=== PATIENT | female | born 1965 | race Caucasian/White ===

== ENCOUNTER 2018-09-12 10:28 | Inpatient (IN) | payer OTHER ==
[2018-09-12 10:59] VITALS: BMI 24.7
--- NOTE | 2018-09-12 13:08 | HP ---
COWS - Scale Resting Pulse: 1= [place] 81-100 Sweatin= Chills/Flushing Restless Observation: 3= Extraneous Movement Pupil Size: 1= Pupils >than Normal Bone or Joint Aches: 2= Severe Diffuse Aches Runny Nose/ Eye Tearin= Runny Nose/Eyes GI Upset > 30mins: 2= Nausea/Diarrhea Tremor Observation: 2= Slight Tremor Visible Yawning Observation: 2= >3x During Session Anxiety or Irritability: 2=Irritable/Anxious Goose Flesh Skin: 0=Smooth Skin COWS Score: 18 CIWA Score Nausea/Vomitin Muscle Tremors: 2 Anxiety: 2 Agitation: 2 Paroxysmal Sweats: 1-Minimal Palms Moist Orientation: 0-Oriented Tacttile Disturbances: 1-Very Mild Itch/Numbness Auditory Disturbances: 0-None Visual Disturbances: 2-Mild Sensitivity Headache: 2-Mild CIWA-Ar Total Score: 14 - Admission Criteria OASAS Guidelines: Admission for Medically Managed Detox: Requires at least one of the followin. CIWA greater than 12 2. Seizures within the past 24 hours 3. Delirium tremens within the past 24 hours 4. Hallucinations within the past 24 hours 5. Acute intervention needed for co occurring medical disorder 6. Acute intervention needed for co occurring psychiatric disorder 7. Severe withdrawal that cannot be handled at a lower level of care (continued vomiting, continued diarrhea, abnormal vital signs) requiring intravenous medication and/or fluids 8. Patient presents the following: CIWA greater than 12 Admission Criteria Met: Admission criteria met Admission ROS S - [facility] Chief Complaint: i need help to stop using heroin and alcohol Allergies/Adverse Reactions: Allergies Allergy/AdvReac Type Severity Reaction Status Date / Time codeine Allergy Intermediate Hives Verified 09/12/18 12:31 History of Present Illness: this 52 years old female with heroin and alcohol dependence,seeking detox, withdrawal symptom,last detox [facility] 03/06/18 to 03/10/18 syncope nicotine dependence bipolar disorder and depression longest period of sobriety 5 years plan for rehab after detox Exam Limitations: No Limitations - Ebola screening Have you traveled outside of the country in the last 21 days: No (N) Have you had contact with anyone from an Ebola affected area: No Have you been sick,other than usual withdrawal symptoms: No Do you have a fever: No - Review of Systems Constitutional: Chills, Loss of Appetite, Malaise, Night Sweats, Changes in sleep, Weakness EENT: reports: Tearing, Nose Congestion Respiratory: reports: No Symptoms reported Cardiac: reports: No Symptoms Reported GI: reports: Diarrhea, Nausea, Poor Appetite : reports: No Symptoms Reported Musculoskeletal: reports: Back Pain, Joint Pain, Muscle Pain, Joint Stiffness Integumentary: reports: Dryness Neuro: reports: Headache, Tremors Endocrine: reports: No Symptoms Reported Hematology: reports: No Symptoms Reported Psychiatric: reports: No Sypmtoms Reported, Judgement Intact, Mood/Affect Appropiate, Orientated x3, other (bipolar disorder) Other Systems: Reviewed and Negative Patient History - Patient Medical History Hx Anemia: No Hx Asthma: No Hx Chronic Obstructive Pulmonary Disease (COPD): No Hx Cancer: No Hx Cardiac Disorders: No Hx Congestive Heart Failure: No Hx Hypertension: No Hx Hypercholesterolemia: No Hx Pacemaker: No HX Cerebrovascular Accident: No Hx Seizures: No Hx Dementia: No Hx Diabetes: No Hx Gastrointestinal Disorders: No Hx Liver Disease: No Hx Genitourinary Disorders: No Hx Sexually Transmitted Disorders: No Hx Renal Disease (ESRD): No Hx Thyroid Disease: No Hx Human Immunodeficiency Virus (HIV): No Hx Hepatitis C: No Hx Depression: Yes Hx Suicide Attempt: No Hx Bipolar Disorder: Yes ([facility]) Hx Schizophrenia: No Other Medical History: no suicidal,no homicidal - Patient Surgical History Past Surgical History: Yes Hx Neurologic Surgery: No Hx Cataract Extraction: No Hx Cardiac Surgery: No Hx Lung Surgery: No Hx Breast Surgery: Yes (bilateral breast augmentation in 2005) Hx Breast Biopsy: No Hx Abdominal Surgery: No Hx Appendectomy: No Hx Cholecystectomy: No Hx Genitourinary Surgery: No Hx Section: No Hx Orthopedic Surgery: Yes (lower back in 1999 - ) Anesthesia Reaction: No - PPD History Previous Implant?: Yes Documented Results: Negative w/proof Implanted On Prior [facility] Admission?: Yes Date: 03/08/18 Results: 0 mm PPD to be Administered?: No - Reproductive History Patient is a Female of Child Bearing Age (11 -55 yrs old): Yes Last Menstrual Period: 01/25/18 Patient : No - Smoking Cessation Smoking history: Current every day smoker Have you smoked in the past 12 months: Yes Aproximately how many cigarettes per day: 10 Cigars Per Day: 0 Hx Chewing Tobacco Use: No Initiated information on smoking cessation: Yes 'Breaking Loose' booklet given: 09/12/18 - Substance & Tx. History Hx Alcohol Use: Yes Hx Substance Use: Yes Substance Use Type: Alcohol, Heroin Hx Substance Use Treatment: Yes ([facility] 08/07/18 to to 03/10/18) - Substances Abused Alcohol Route: Oral Frequency: Daily Amount used: 1 QUART OF VODKA Age of first use: 13 Date of Last Use: 09/12/18 Heroin Route: Inhalation Frequency: Daily Amount used: 7 bags Age of first use: 13 Date of Last Use: 09/09/18 Family Disease History - Family Disease History Family Disease History: Diabetes: Father (living, age 92, ), Heart Disease: Father, CA: Mother (, brain ca), Other: Father, Mother, Brother (one - living - Crohns disease), Sister (one - living - hx heroin - on suboxone) Admission Physical Exam [facility] - Vital Signs Vital Signs: Vital Signs - 24 hr 09/12/18 10:41 Temperature 98.6 F Pulse Rate 96 H Respiratory 18 Rate Blood Pressure 98/79 - Physical General Appearance: Yes: Moderate Distress, Tremorous, Irritable, Sweating, Anxious HEENTM: Yes: Normal ENT Inspection, ORLY, Pharynx Normal Respiratory: Yes: Lungs Clear, Normal Breath Sounds, No Respiratory Distress Neck: Yes: Within Normal Limits, No masses,lesions,Nodules, Supple, Trachea in good position Breast: Yes: Breast Exam Deferred (s/p bilateral breast augmentation) Cardiology: Yes: Within Normal Limits, Regular Rhythm, Regular Rate, S1, S2 Abdominal: Yes: Normal Bowel Sounds, Non Tender, Flat, Soft Genitourinary: Yes: Within Normal Limits Musculoskeletal: Yes: Back pain, Joint Stiffness, Muscle Pain Extremities: Yes: Within Normal Limits, Normal Range of Motion, Tremors Neurological: Yes: information security engineer II-XII NML intact, Fully Oriented, Alert, Motor Strength 5/5 Integumentary: Yes: Dry Lymphatic: Yes: Within Normal Limits - Diagnostic (1) Opioid dependence with withdrawal Current Visit: Yes Status: Acute (2) Opioid dependence Current Visit: No Status: Active (3) Alcohol dependence with uncomplicated withdrawal Current Visit: No Status: Acute (4) Nicotine dependence Current Visit: Yes Status: Acute (5) Weight loss Current Visit: Yes Status: Acute (6) Bipolar disorder Current Visit: Yes Status: Acute Cleared for Admission S - Detox or Rehab [facility] Level of Care: Medically Managed Detox Regimen/Protocol: Methadone/Librium S Breath Alcohol Content Breath Alcohol Content: 0.046 Urine Pregancy Test - Result Urine Test Results: Negative- NO Line Present Urine Drug Screen - Results Drug Screen Negative: No Urine Drug Screen Results: BZO-Benzodiazepines, BUP-Suboxone
[2018-09-12] MEDS ORDERED: CYCLOBENZAPRINE HCL 10 MG TABLET (FP) PO PRN (13:32)
[2018-09-12] MEDS ORDERED: METHADONE HCL 10 MG TABLET (FOR DETOX USE ONLY) PO ONE ×2 (15:00→23:00)
[2018-09-12] MEDS: chlordiazePOXIDE HCL 25 MG CAPSULE PO PRN ×2 (15:40→18:51)
[2018-09-12] MEDS: chlordiazePOXIDE HCL 25 MG CAPSULE PO SCH ×2 (17:09→22:09)
[2018-09-13] MEDS: chlordiazePOXIDE HCL 25 MG CAPSULE PO SCH ×4 (05:41→22:02)
[2018-09-13] MEDS ORDERED: METHADONE HCL 10 MG TABLET (FOR DETOX USE ONLY) PO SCH (10:00)
[2018-09-13] MEDS: NICOTINE 21 MG/24 HOURS TOPICAL PATCH TD SCH (10:02)
[2018-09-13] MEDS ORDERED: guaiFENesin/D-METHORPHAN HB 10 ML UNIT-DOSE CUPS PO PRN (10:06)
[2018-09-13] MEDS ORDERED: ACETAMINOPHEN 325 MG TABLET (FP) PO PRN (10:06)
[2018-09-13] MEDS ORDERED: MAG HYDROX/AL HYDROX/SIMETH 30 ML UNIT-DOSE CUP PO PRN (10:06)
[2018-09-13] MEDS ORDERED: P-EPHED 60MG/TRIPROLIDI 2.5MG TABLET PO PRN (10:06)
[2018-09-13] MEDS ORDERED: LOPERAMIDE HCL 2 MG CAPSULE PO PRN (10:06)
[2018-09-13] MEDS ORDERED: MENTHOL/PHENOL 1 EACH UD MM PRN (10:06)
[2018-09-13] MEDS ORDERED: MAGNESIUM CITRATE 300 ML BOTTLE PO PRN (10:06)
[2018-09-13] MEDS ORDERED: IBUPROFEN 400 MG TABLET (FP) PO PRN (10:06)
--- NOTE | 2018-09-13 10:12 | PN ---
[facility] CIWA - CIWA Score Nausea/Vomitin-Mild Nausea/No Vomiting Muscle Tremors: 3 Anxiety: 3 Agitation: 3 Paroxysmal Sweats: 1-Minimal Palms Moist Orientation: 1-Uncertain about Date Tacttile Disturbances: 0-None Auditory Disturbances: 0-None Visual Disturbances: 0-None Headache: 2-Mild CIWA-Ar Total Score: 14 [facility]HS COWS - Scale Resting Pulse: 0= MT 80 or Below Sweatin= Chills/Flushing Restless Observation: 0= Sits Still Pupil Size: 0= Normal to Room Light Bone or Joint Aches: 2= Severe Diffuse Aches Runny Nose/ Eye Tearin= Nasal Congestion GI Upset > 30mins: 2= Nausea/Diarrhea Tremor Observation of Outstretched Hands: 2= Slight Tremor Visible Yawning Observation: 1= 1-2x During Session Anxiety or Irritability: 1=Feels Anxious/Irritable Goose Flesh Skin: 0=Smooth Skin COWS Score: 10 [facility] Progress Note (SOAP) Subjective: patient has bipolar II history of psychiatric hospitalization for manic depression treated with psychotropic medication patient meet the criteria for psychiatric referral tremor body aches muscle cramping sweating anxiousness Objective: 09/13/18 10:40 Vital Signs Temperature 97.1 F L 09/13/18 10:05 Pulse Rate 77 09/13/18 10:05 Respiratory Rate 17 09/13/18 10:05 Blood Pressure 97/75 09/13/18 10:05 O2 Sat by Pulse Oximetry (%) lab pending Assessment: 09/13/18 10:44 withdrawal sx Plan: continue detox
[2018-09-13] MEDS: NICOTINE POLACRILEX 4 MG GUM BUC PRN (11:22)
[2018-09-13] MEDS: chlordiazePOXIDE HCL 25 MG CAPSULE PO PRN ×2 (14:01→20:27)
[2018-09-13 14:50] LABS: HEMATOCRIT 37.3 % (32.4-45.2); HEMOGLOBIN 12.8 GM/dL (10.7-15.3); MCH 31.3 pg (25.7-33.7); MCHC 34.2 g/dl (32.0-36.0); MEAN CELL VOLUME 91.5 fl (80-96); MEAN PLT VOLUME 8.5 fl (7.5-11.1); PLATELET COUNT 287 K/MM3 (134-434); RBC 4.08 M/mm3 (3.60-5.2); RDW 15.2 % (11.6-15.6); WHITE BLOOD COUNT 5.5 K/mm3 (4.0-10.0)
[2018-09-13] MEDS ORDERED: BACITRACIN 0.9 GM PACKET TP ONE (15:15)
[2018-09-13 15:27] LABS: ALK PHOS 43 U/L (45-117); ANION GAP 5 MMOL/L (8-16); BILIRUBIN,TOTAL 0.3 mg/dL (0.2-1); BLOOD UREA NITROGEN 17 mg/dL (7-18); CALCIUM 8.5 mg/dL (8.5-10.1); CHLORIDE 105 mmol/L (98-107); CO2 30 mmol/L (21-32); CREATININE 0.7 mg/dL (0.55-1.3); GLUCOSE,RANDOM 99 mg/dL (74-106); POTASSIUM 4.3 mmol/L (3.5-5.1); SGOT/AST 14 U/L (15-37); SGPT/ALT 18 U/L (13-61); SODIUM 140 mmol/L (136-145); TOT PROT 5.6 g/dl (6.4-8.2)
--- NOTE | 2018-09-13 15:40 | CONSULT ---
[facility] Psychiatric Consult - Data Date of interview: 09/13/18 Admission source: [facility] Identifying data: Readmission to [facility] for this 52 y/o female currently undergoing detoxification (alcohol). 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 Substance Abuse History: Confirmed by the patient in this interview. Details in current [facility] report as follows : Smoking history: Current every day smoker. Have you smoked in the past 12 months: Yes. Aproximately how many cigarettes per day: 10. Cigars Per Day: 0. Hx Chewing Tobacco Use: No. Initiated information on smoking cessation: Yes. 'Breaking Loose' booklet given: . - Substance & Tx. History. Hx Alcohol Use: Yes. Hx Substance Use: Yes. Substance Use Type: Alcohol, Heroin. Hx Substance Use Treatment: Yes ([facility] to to 03/10/18). - Substances Abused. Alcohol. Route: Oral. Frequency: Daily. Amount used: 1 QUART OF VODKA. Age of first use: 13. Date of Last Use: 09/12/18. Heroin. Route: Inhalation. Frequency: Daily. Amount used: 7 bags. Age of first use: 13. Date of Last Use: 09/09/18 Medical History: Remarkable for chronic lumbar pain, fibromyalgia, psoriatic arthritis and a history of surgeries (bilateral breast augmentation, fusion of lumbar spine). Psychiatric History: Patient endorses a history of one psychiatric hopsitalization, in the , at [facility] in [facility]. Initially diagnosed with MDD and OCD (age 16). Later revised to Bipolar Disorder (approximately nine months ago, by her new psychiatrist, Dr Rodriguez). Ms Barnett sees Dr Lucrecia Rodriguez at her private office in [facility], for medication management. Patient is maintained on a regimen of latuda 60 mg/ day + prozac 60 mg/day + trazodone 100 mg/hs (confirmed by pharmacy claims of 06/[address] [facility] Adequate adherence to medications, as per self-report. No history of suicide attempts. Physical/Sexual Abuse/Trauma History: No reported history of abuse. Traumatized by her divorce (took place 10 years ago). Additional Comment: Urine Drug Screen Results: BZO-Benzodiazepines, BUP- Suboxone. Noted. Mental Status Exam - Mental Status Exam Alert and Oriented to: Time, Place, Person Cognitive Function: Good Patient Appearance: Well Groomed (short stature) Mood: Apprehensive, Hopeful Affect: Appropriate, Normal Range Patient Behavior: Talkative, Appropriate, Cooperative Speech Pattern: Clear, Appropriate Voice Loudness: Normal Thought Process: Intact, Goal Oriented Thought Disorder: Not Present Hallucinations: Denies Suicidal Ideation: Denies Homicidal Ideation: Denies Insight/Judgement: Fair Sleep: Poorly, Difficulty falling asleep Appetite: Good Muscle strength/Tone: Normal Gait/Station: Normal Psychiatric Findings - Problem List ([place] 1, 2,3) (1) Alcohol dependence with uncomplicated withdrawal Current Visit: Yes Status: Acute (2) Opioid dependence with withdrawal Current Visit: Yes Status: Acute (3) Benzodiazepine dependence Current Visit: Yes Status: Chronic (4) Nicotine dependence Current Visit: Yes Status: Chronic Qualifiers: Nicotine product type: cigarettes Substance use status: in withdrawal Qualified Code(s): F17.213 - Nicotine dependence, cigarettes, with withdrawal (5) Bipolar disorder Current Visit: Yes Status: Chronic Comment: On medications. (6) Substance induced mood disorder Current Visit: Yes Status: Chronic (7) Insomnia Current Visit: Yes Status: Chronic - Initial Treatment Plan Initial Treatment Plan: Psychiatric interview is conducted with medical students in attendance. Psychoeducation : patient is reminded of the deleterious effects of substance abuse (ETOH, opioid, nicotine, benzodiazepines ) on several domains of functioning (medical, legal, vocational, psychological, social) and recent advances in relapse prevention are discussed with the patient. Benefits of adherence to OPD care discussed. Detoxification in progress. AA/NA meetings. Groups. Support. Patient is willing to resume latuda 40 mg po daily (dose is reduced as a caution for oversedation) + prozac 60 mg po daily + trazodone 100 mg po hs. Ordered. Side effects/benefits of each formulation are discussed with patient. Ms Barnett consents, verbally, to the inclusion of these drugs to the current medication regimen. Observation.
--- NOTE | 2018-09-13 17:32 | EKG ---
Test Reason : Blood Pressure : / mmHG Vent. Rate : 062 BPM Atrial Rate : 062 BPM P-R Int : 186 ms QRS Dur : 078 ms QT Int : 410 ms P-R-T Axes : 063 -32 001 degrees QTc Int : 416 ms NORMAL SINUS RHYTHM LEFT AXIS DEVIATION LOW VOLTAGE QRS ABNORMAL ECG WHEN COMPARED WITH ECG OF 06-MAR-2018 15:28, T WAVE VARIATION Confirmed by PATIENCE HAILE MD ([id number]) on 09/13/2018 5:31:55 PM Referred By: Confirmed By:PATIENCE HAILE MD
[2018-09-13] MEDS ORDERED: MELATONIN 5 MG TABLETS PO PRN (22:00)
[2018-09-13] MEDS: THIAMINE HCL 100 MG TABLET (FP) PO SCH (22:02)
[2018-09-13] MEDS: traZODone HCL 100 MG TABLET (FP) PO SCH (22:02)
[2018-09-14] MEDS: chlordiazePOXIDE HCL 25 MG CAPSULE PO SCH ×2 (05:31→10:19)
--- NOTE | 2018-09-14 09:04 | PN ---
[facility] CIWA - CIWA Score Nausea/Vomitin-Mild Nausea/No Vomiting Muscle Tremors: 3 Anxiety: 2 Agitation: 1-Slight > Activity Paroxysmal Sweats: 1-Minimal Palms Moist Orientation: 1-Uncertain about Date Tacttile Disturbances: 0-None Auditory Disturbances: 0-None Visual Disturbances: 0-None Headache: 2-Mild CIWA-Ar Total Score: 11 BHS COWS - Scale Resting Pulse: 1= [place] 81-100 Sweatin= Chills/Flushing Restless Observation: 0= Sits Still Pupil Size: 0= Normal to Room Light Bone or Joint Aches: 1= Mild Discomfort Runny Nose/ Eye Tearin= Nasal Congestion GI Upset > 30mins: 1= Stomach Cramp Tremor Observation of Outstretched Hands: 1= Tremor [place], Not Seen Yawning Observation: 1= 1-2x During Session Anxiety or Irritability: 1=Feels Anxious/Irritable Goose Flesh Skin: 0=Smooth Skin COWS Score: 8 [facility] Progress Note (SOAP) Subjective: body aches tremor muscle cramping sweating Objective: 09/14/18 09:03 Vital Signs Temperature 96.5 F L 09/14/18 06:17 Pulse Rate 83 09/14/18 06:17 Respiratory Rate 18 09/14/18 06:17 Blood Pressure 100/76 09/14/18 06:17 O2 Sat by Pulse Oximetry (%) Laboratory Last Values WBC 5.5 K/mm3 (4.0-10.0) 09/13/18 11:00 RBC 4.08 M/mm3 (3.60-5.2) 09/13/18 11:00 Hgb 12.8 GM/dL (10.7-15.3) 09/13/18 11:00 Hct 37.3 % (32.4-45.2) 09/13/18 11:00 MCV 91.5 fl (80-96) 09/13/18 11:00 MCH 31.3 pg (25.7-33.7) 09/13/18 11:00 MCHC 34.2 g/dl (32.0-36.0) 09/13/18 11:00 RDW 15.2 % (11.6-15.6) 09/13/18 11:00 Plt Count 287 K/MM3 (134-434) 09/13/18 11:00 MPV 8.5 fl (7.5-11.1) 09/13/18 11:00 Sodium 140 mmol/L (136-145) 09/13/18 11:00 Potassium 4.3 mmol/L (3.5-5.1) 09/13/18 11:00 Chloride 105 mmol/L (98-107) 09/13/18 11:00 Carbon Dioxide 30 mmol/L (21-32) 09/13/18 11:00 Anion Gap 5 MMOL/L (8-16) L 09/13/18 11:00 BUN 17 mg/dL (7-18) 09/13/18 11:00 Creatinine 0.7 mg/dL (0.55-1.3) 09/13/18 11:00 Creat Clearance w eGFR > 60 (>60) 09/13/18 11:00 Random Glucose 99 mg/dL (74-106) 09/13/18 11:00 Calcium 8.5 mg/dL (8.5-10.1) 09/13/18 11:00 Total Bilirubin 0.3 mg/dL (0.2-1) 09/13/18 11:00 AST 14 U/L (15-37) L 09/13/18 11:00 ALT 18 U/L (13-61) 09/13/18 11:00 Alkaline Phosphatase 43 U/L (45-117) L 09/13/18 11:00 Total Protein 5.6 g/dl (6.4-8.2) L 09/13/18 11:00 Albumin 3.0 g/dl (3.4-5.0) L 09/13/18 11:00 lab noted Assessment: 09/14/18 09:03 alcohol and opiate withdrawal sx Plan: continue detox regimen that the patient is feeling better today in comparison to admission
[2018-09-14] MEDS ORDERED: LURASIDONE HCL 40 MG, LURASIDONE HCL 20 MG PO SCH (10:00)
[2018-09-14] MEDS ORDERED: METHADONE HCL 5 MG TABLET (FOR DETOX USE ONLY) PO SCH (10:00)
[2018-09-14] MEDS ORDERED: LURASIDONE HCL 20 MG TABLET PO SCH (10:00)
[2018-09-14] MEDS: PRENATAL VITAMINS W/ FOLIC ACID TABLET (FP) PO SCH (10:15)
[2018-09-14] MEDS: FLUoxetine HCL 20 MG CAPSULE (FP) PO SCH (10:15)
[2018-09-14] MEDS: LURASIDONE HCL 40 MG TABLET PO SCH (10:16)
[2018-09-14] MEDS: NICOTINE 21 MG/24 HOURS TOPICAL PATCH TD SCH (10:17)
[2018-09-14] MEDS: NICOTINE POLACRILEX 4 MG GUM BUC PRN (10:20)
[2018-09-14] MEDS: chlordiazePOXIDE HCL 25 MG CAPSULE PO PRN (14:08)
[2018-09-14] MEDS: chlordiazePOXIDE 5 MG CAPSULE PO SCH ×2 (17:07→22:00)
[2018-09-14] MEDS: MAGNESIUM HYDROX 2400MG/30ML ORAL SUSPENSION 30 ML CUP PO PRN (17:15)
[2018-09-14] MEDS: traZODone HCL 100 MG TABLET (FP) PO SCH (22:00)
[2018-09-14] MEDS: THIAMINE HCL 100 MG TABLET (FP) PO SCH (22:00)
[2018-09-15] MEDS: chlordiazePOXIDE 5 MG CAPSULE PO SCH ×2 (05:56→10:06)
--- NOTE | 2018-09-15 09:37 | PN ---
S Progress Note (SOAP) Subjective: feeling better today patient requests to begin chemical rehab 09/16/18 that less body ache mild tremor last ativan qid 2 mg 30 days supply filled on 08/24/18 opiate detox regimen modified to suit the needs of the patient Objective: 09/15/18 09:37 Vital Signs Temperature 96.8 F L 09/15/18 09:11 Pulse Rate 75 09/15/18 09:11 Respiratory Rate 18 09/15/18 09:11 Blood Pressure 89/63 L 09/15/18 09:11 O2 Sat by Pulse Oximetry (%) Laboratory Last Values WBC 5.5 K/mm3 (4.0-10.0) 09/13/18 11:00 RBC 4.08 M/mm3 (3.60-5.2) 09/13/18 11:00 Hgb 12.8 GM/dL (10.7-15.3) 09/13/18 11:00 Hct 37.3 % (32.4-45.2) 09/13/18 11:00 MCV 91.5 fl (80-96) 09/13/18 11:00 MCH 31.3 pg (25.7-33.7) 09/13/18 11:00 MCHC 34.2 g/dl (32.0-36.0) 09/13/18 11:00 RDW 15.2 % (11.6-15.6) 09/13/18 11:00 Plt Count 287 K/MM3 (134-434) 09/13/18 11:00 MPV 8.5 fl (7.5-11.1) 09/13/18 11:00 Sodium 140 mmol/L (136-145) 09/13/18 11:00 Potassium 4.3 mmol/L (3.5-5.1) 09/13/18 11:00 Chloride 105 mmol/L (98-107) 09/13/18 11:00 Carbon Dioxide 30 mmol/L (21-32) 09/13/18 11:00 Anion Gap 5 MMOL/L (8-16) L 09/13/18 11:00 BUN 17 mg/dL (7-18) 09/13/18 11:00 Creatinine 0.7 mg/dL (0.55-1.3) 09/13/18 11:00 Creat Clearance w eGFR > 60 (>60) 09/13/18 11:00 Random Glucose 99 mg/dL (74-106) 09/13/18 11:00 Calcium 8.5 mg/dL (8.5-10.1) 09/13/18 11:00 Total Bilirubin 0.3 mg/dL (0.2-1) 09/13/18 11:00 AST 14 U/L (15-37) L 09/13/18 11:00 ALT 18 U/L (13-61) 09/13/18 11:00 Alkaline Phosphatase 43 U/L (45-117) L 09/13/18 11:00 Total Protein 5.6 g/dl (6.4-8.2) L 09/13/18 11:00 Albumin 3.0 g/dl (3.4-5.0) L 09/13/18 11:00 RPR Titer Nonreactive (NONREACTIVE) 09/13/18 11:00 lab noted Assessment: 09/15/18 09:38 mild withdrawal sx Plan: continue detox [facility]
[2018-09-15] MEDS ORDERED: METHADONE HCL 10 MG TABLET (FOR DETOX USE ONLY) PO SCH (10:00)
[2018-09-15] MEDS: PRENATAL VITAMINS W/ FOLIC ACID TABLET (FP) PO SCH (10:04)
[2018-09-15] MEDS: FLUoxetine HCL 20 MG CAPSULE (FP) PO SCH (10:04)
[2018-09-15] MEDS: NICOTINE 21 MG/24 HOURS TOPICAL PATCH TD SCH (10:04)
[2018-09-15] MEDS: LURASIDONE HCL 40 MG TABLET PO SCH (10:06)
[2018-09-15] MEDS: MAGNESIUM HYDROX 2400MG/30ML ORAL SUSPENSION 30 ML CUP PO PRN (10:16)
[2018-09-15] MEDS ORDERED: MINERAL OIL/PETROLAT/WATER TOPICAL CREAM 454 GM JAR TP SCH (13:45)
[2018-09-15] MEDS: NICOTINE POLACRILEX 4 MG GUM BUC PRN (14:12)
[2018-09-15] MEDS: chlordiazePOXIDE HCL 10 MG CAPSULE PO SCH ×2 (17:10→22:24)
[2018-09-15] MEDS: THIAMINE HCL 100 MG TABLET (FP) PO SCH (22:24)
[2018-09-15] MEDS: traZODone HCL 100 MG TABLET (FP) PO SCH (22:24)
[2018-09-16] MEDS: chlordiazePOXIDE HCL 10 MG CAPSULE PO SCH (05:59)
[2018-09-16] MEDS ORDERED: METHADONE HCL 5 MG TABLET (FOR DETOX USE ONLY) PO SCH (06:00)
[2018-09-16 09:24] VITALS: BP 98/70; PULSE 77; TEMP 97.1
[2018-09-16] MEDS ORDERED: METHADONE HCL 10 MG TABLET (FOR DETOX USE ONLY) PO SCH (10:00)
--- NOTE | 2018-09-16 12:04 | DS ---
[facility] Detox Discharge Summary Admission Date: 09/12/18 Discharge Date: 09/16/18 - History Present History: Alcohol Dependence, Opioid Dependence Additional Comments: 52 years old female admitted on 09/12/18 for alcohol and opiate withdrawal stabilization feeling better today preferred begin chemical rehab today that she wants to return to ativan treatment and had monthly appointment set - Physical Exam Results Vital Signs: Vital Signs Temperature 97.1 F L 09/16/18 09:23 Pulse Rate 77 09/16/18 09:23 Respiratory Rate 18 09/16/18 09:23 Blood Pressure 98/70 09/16/18 09:23 O2 Sat by Pulse Oximetry (%) Pertinent Admission Physical Exam Findings: alcohol and opiate withdrawal sx Laboratory Last Values WBC 5.5 K/mm3 (4.0-10.0) 09/13/18 11:00 RBC 4.08 M/mm3 (3.60-5.2) 09/13/18 11:00 Hgb 12.8 GM/dL (10.7-15.3) 09/13/18 11:00 Hct 37.3 % (32.4-45.2) 09/13/18 11:00 MCV 91.5 fl (80-96) 09/13/18 11:00 MCH 31.3 pg (25.7-33.7) 09/13/18 11:00 MCHC 34.2 g/dl (32.0-36.0) 09/13/18 11:00 RDW 15.2 % (11.6-15.6) 09/13/18 11:00 Plt Count 287 K/MM3 (134-434) 09/13/18 11:00 MPV 8.5 fl (7.5-11.1) 09/13/18 11:00 Sodium 140 mmol/L (136-145) 09/13/18 11:00 Potassium 4.3 mmol/L (3.5-5.1) 09/13/18 11:00 Chloride 105 mmol/L (98-107) 09/13/18 11:00 Carbon Dioxide 30 mmol/L (21-32) 09/13/18 11:00 Anion Gap 5 MMOL/L (8-16) L 09/13/18 11:00 BUN 17 mg/dL (7-18) 09/13/18 11:00 Creatinine 0.7 mg/dL (0.55-1.3) 09/13/18 11:00 Creat Clearance w eGFR > 60 (>60) 09/13/18 11:00 Random Glucose 99 mg/dL (74-106) 09/13/18 11:00 Calcium 8.5 mg/dL (8.5-10.1) 09/13/18 11:00 Total Bilirubin 0.3 mg/dL (0.2-1) 09/13/18 11:00 AST 14 U/L (15-37) L 09/13/18 11:00 ALT 18 U/L (13-61) 09/13/18 11:00 Alkaline Phosphatase 43 U/L (45-117) L 09/13/18 11:00 Total Protein 5.6 g/dl (6.4-8.2) L 09/13/18 11:00 Albumin 3.0 g/dl (3.4-5.0) L 09/13/18 11:00 RPR Titer Nonreactive (NONREACTIVE) 09/13/18 11:00 lab noted - Treatment Hospital Course: Detox Protocol Followed, Detoxed Safely, Responded well, Discharged Condition Good, Rehab Referral Accepted Patient has Accepted a Rehab Referral to: return to ativan provider - Medication Discharge Medications: Ambulatory Orders Adalimumab [Humira(Cf)] 20 mg SQ Q7D 03/06/18 Lorazepam [Ativan] 2 mg PO TID PRN 03/06/18 Fluoxetine HCl [Prozac -] 60 mg PO DAILY #90 capsule 03/07/18 traZODone HCL [Desyrel -] 100 mg PO HS #30 tablet 03/07/18 Lurasidone HCl [Latuda -] 60 mg PO DAILY 09/12/18 Naloxone HCl [Narcan] 4 mg NS ASDIR PRN 09/14/18 - Diagnosis (1) Alcohol dependence with uncomplicated withdrawal Status: Acute (2) Nicotine dependence Status: Acute Qualifiers: Nicotine product type: cigarettes Substance use status: in withdrawal Qualified Code(s): F17.213 - Nicotine dependence, cigarettes, with withdrawal (3) Opioid dependence with withdrawal Status: Acute (4) Substance induced mood disorder Status: Suspected - AMA Did Patient Leave Against Medical Advice: No
[2018-09-17] MEDS ORDERED: METHADONE HCL 5 MG TABLET (FOR DETOX USE ONLY) PO SCH (06:00)
== END 2018-09-16 09:15 | disposition home or self-care (01) | DRG 773 ==
LOC: YASAS 10:28 → Y3N 14:51
PROVIDERS: ADMIT Neuromusculoskeletal Medicine & OMM; ATTEND Neuromusculoskeletal Medicine & OMM
PROC: HZ2ZZZZ Detoxification Services for Substance Abuse Treatment (ICD-10-PCS; principal; 2018-09-12)
DX: F11.23 Opioid dependence with withdrawal (principal); F10.230 Alcohol dependence with withdrawal, uncomplicated; F13.20 Sedative, hypnotic or anxiolytic dependence, uncomplicated; F17.213 Nicotine dependence, cigarettes, with withdrawal; F19.24 Other psychoactive substance dependence with psychoactive substance-induced mood disorder; F31.81 Bipolar II disorder; G47.00 Insomnia, unspecified; M54.5 Low back pain; G89.29 Other chronic pain; M79.7 Fibromyalgia; Z88.6 Allergy status to analgesic agent
CPT/HCPCS: 36415; 80053; 85027; 86593; 93005; 93010

== ENCOUNTER 2019-01-02 09:40 | Inpatient (IN) | payer OTHER | END 2019-01-03 09:09 | disposition left against medical advice (07) | LOC: YASAS 09:40 → Y6N 15:55 ==

== ENCOUNTER 2019-02-18 11:11 | Inpatient (IN) | payer OTHER ==
[2019-02-18 12:19] VITALS: BMI 23.2
--- NOTE | 2019-02-18 13:05 | HP ---
COWS - Scale Resting Pulse: 2= OK 101-120 Sweatin= Chills/Flushing Restless Observation: 0= Sits Still Pupil Size: 0= Normal to Room Light Bone or Joint Aches: 2= Severe Diffuse Aches Runny Nose/ Eye Tearin= None GI Upset > 30mins: 3= Vomiting/Diarrhea Tremor Observation: 2= Slight Tremor Visible Yawning Observation: 0= None Anxiety or Irritability: 2=Irritable/Anxious Goose Flesh Skin: 0=Smooth Skin COWS Score: 12 CIWA Score Nausea/Vomitin-Int. Nausea w/Dry Heave Muscle Tremors: 3 Anxiety: 3 Agitation: 3 Paroxysmal Sweats: 1-Minimal Palms Moist Orientation: 0-Oriented Tacttile Disturbances: 0-None Auditory Disturbances: 0-None Visual Disturbances: 0-None Headache: 3-Moderate CIWA-Ar Total Score: 17 - Admission Criteria OASAS Guidelines: Admission for Medically Managed Detox: Requires at least one of the followin. CIWA greater than 12 2. Seizures within the past 24 hours 3. Delirium tremens within the past 24 hours 4. Hallucinations within the past 24 hours 5. Acute intervention needed for co occurring medical disorder 6. Acute intervention needed for co occurring psychiatric disorder 7. Severe withdrawal that cannot be handled at a lower level of care (continued vomiting, continued diarrhea, abnormal vital signs) requiring intravenous medication and/or fluids 8. Admission [facility] Chief Complaint: seeking help for alcohol and suboxone use Allergies/Adverse Reactions: Allergies Allergy/AdvReac Type Severity Reaction Status Date / Time codeine Allergy Intermediate Hives Verified 02/18/19 12:13 History of Present Illness: 53 y/o/f here for alcohol and suboxone use. She was last here in December for detox but did not stay at that time because she found out her dad was not doing well so she decided to leave. She has been drinking a quart of vodka and a few cans of beer daily. She denies any history of seizures but has had blackouts in the past with her last episode being a few months ago. She starts drinking early in the morning and if she does not have a drink she starts to feel anxious and starts to shake. She has been using suboxone sublingual for the last 6 months which she is getting from her sister, she is using 8mg BID. She started using Suboxone just to try it but has been using it since. She denies using any opioids in the past. She was prescribed Ativan for anxiety a couple of years ago and uses it as needed. She has not used suboxone for 2 days and her last drink was this morning. PMHx of Bipolar disorder and is on Latuda which she takes daily but did not take today. She also takes Trazodone and Prozac daily. SHx of a lumbar fusion, L5-S1, due to collapsed discs in 1999. She is currently living with a significant other and is unemployed. She smokes half a pack of cigarettes daily. - Ebola screening Have you traveled outside of the country in the last 21 days: No Have you had contact with anyone from an Ebola affected area: No Do you have a fever: No - Review of Systems Constitutional: Chills, Loss of Appetite GI: reports: Diarrhea, Nausea, Vomiting (yesterday, no blood in vomitus) Musculoskeletal: reports: Back Pain, Joint Pain, Muscle Pain Neuro: reports: Headache Psychiatric: reports: Agitated, Anxious Other Systems: Reviewed and Negative Patient History - Patient Medical History Hx Anemia: No Hx Asthma: No Hx Chronic Obstructive Pulmonary Disease (COPD): No Hx Cancer: No Hx Cardiac Disorders: No Hx Congestive Heart Failure: No Hx Hypertension: No Hx Hypercholesterolemia: No Hx Pacemaker: No HX Cerebrovascular Accident: No Hx Seizures: No Hx Dementia: No Hx Diabetes: No Hx Gastrointestinal Disorders: No Hx Liver Disease: No Hx Genitourinary Disorders: No Hx Sexually Transmitted Disorders: No Hx Renal Disease (ESRD): No Hx Thyroid Disease: No Hx Human Immunodeficiency Virus (HIV): No (last 2017 negative) Hx Hepatitis C: No Hx Depression: Yes Hx Suicide Attempt: No Hx Bipolar Disorder: Yes (hospitalized [facility] june 2017, on latuda) Hx Schizophrenia: No Other Medical History: no suicidal or homicidal ideations - Patient Surgical History Past Surgical History: Yes Hx Neurologic Surgery: No Hx Cataract Extraction: No Hx Cardiac Surgery: No Hx Lung Surgery: No Hx Breast Surgery: Yes (bilateral breast augmentation in 2005) Hx Breast Biopsy: No Hx Abdominal Surgery: No Hx Appendectomy: No Hx Cholecystectomy: No Hx Genitourinary Surgery: No Hx Section: No Hx Orthopedic Surgery: Yes (lower back in 1999 - fusion) Anesthesia Reaction: No - PPD History Previous Implant?: Yes Documented Results: Negative w/o proof Implanted On Prior R Admission?: Yes Date: 03/08/18 Results: 0 mm PPD to be Administered?: No - Reproductive History Patient is a Female of Child Bearing Age (11 -55 yrs old): Yes Last Menstrual Period: 01/25/18 Patient : No - Smoking Cessation Smoking history: Current every day smoker Have you smoked in the past 12 months: Yes Aproximately how many cigarettes per day: 10 Cigars Per Day: 0 Hx Chewing Tobacco Use: No Initiated information on smoking cessation: Yes 'Breaking Loose' booklet given: 02/18/19 - Substances abused Alcohol Substance route: Oral Frequency: Daily Amount used: 1 QUART OF VODKA/ 2 of 24 oOZS OF BEER Age of first use: 43 Date of last use: 02/18/19 Other Other (specify): SUBOXONE Substance route: Oral Frequency: Daily Amount used: (2) 8 MG FILMS Age of first use: 50 Date of last use: 02/16/19 None Other (specify): ATIVAN Substance route: Oral Frequency: Daily Amount used: 2MG Age of first use: 52 Date of last use: 02/11/19 Family Disease History - Family Disease History Family Disease History: Diabetes: Father (living, age 92, ), Heart Disease: Father, CA: Mother (, brain ca), Other: Father, Mother, Brother (one - living - Crohns disease), Sister (one - living - hx heroin - on suboxone) Admission Physical Exam S - Vital Signs Vital Signs: Vital Signs - 24 hr 02/18/19 12:07 Temperature 98.0 F Pulse Rate 103 H Respiratory 19 Rate Blood Pressure 101/73 - Physical General Appearance: Yes: No Apparent Distress HEENTM: Yes: EOMI, Normocephalic, ORLY Respiratory: Yes: Lungs Clear, Normal Breath Sounds, No Accessory Muscle Use Neck: Yes: Supple Cardiology: Yes: Regular Rhythm, Regular Rate, S1, S2 Abdominal: Yes: Normal Bowel Sounds, Soft. No: Guarding, Rebound Musculoskeletal: Yes: Gait Steady Extremities: Yes: Normal Capillary Refill, Tremors (bilaterally) Neurological: Yes: Fully Oriented, Alert, Motor Strength 5/5 Integumentary: Yes: Normal Color - Diagnostic (1) Alcohol use disorder Current Visit: Yes Status: Acute (2) Anxiety Current Visit: Yes Status: Acute (3) Bipolar disorder Current Visit: No Status: Chronic Comment: On medications. (4) Nicotine dependence Current Visit: No Status: Chronic Qualifiers: Nicotine product type: cigarettes Substance use status: uncomplicated Qualified Code(s): F17.210 - Nicotine dependence, cigarettes, uncomplicated (5) Opioid dependence with withdrawal Current Visit: No Status: Chronic Cleared for Admission [facility] - Detox or Rehab S Level of Care: Medically Supervised 2Day Detox Regimen/Protocol: Librium Breathalyzer - Breathalyzer Breathalyzer: 0.066 Urine Drug Screen - Test Device Lot number: [id number] Expiration date: 09/09/20 - Control Is test valid?: Yes - Results Drug screen NEGATIVE: No Urine drug screen results: BZO-Benzodiazepines Inpatient Rehab Admission - Rehab Decision to Admit Inpatient rehab admission?: No
[2019-02-18] MEDS ORDERED: NICOTINE POLACRILEX 2 MG GUM BUC PRN (14:00)
[2019-02-18] MEDS ORDERED: MENTHOL/PHENOL 1 EACH UD MM PRN (14:00)
[2019-02-18] MEDS ORDERED: hydrOXYzine HCL 25 MG TABLET (FP) PO PRN (14:00)
[2019-02-18] MEDS ORDERED: MAGNESIUM HYDROX 2400MG/30ML ORAL SUSPENSION 30 ML CUP PO PRN (14:00)
[2019-02-18] MEDS ORDERED: ACETAMINOPHEN 325 MG TABLET (FP) PO PRN ×2 (14:00)
[2019-02-18] MEDS ORDERED: BISMUTH SUBSALICYLATE 262 MG/15 ML BTL PO PRN (14:00)
[2019-02-18] MEDS ORDERED: MAGNESIUM CITRATE 300 ML BOTTLE PO PRN (14:00)
[2019-02-18] MEDS ORDERED: MAG HYDROX/AL HYDROX/SIMETH 30 ML UNIT-DOSE CUP PO PRN (14:00)
[2019-02-18] MEDS ORDERED: MELATONIN 5 MG TABLETS PO PRN (14:00)
--- NOTE | 2019-02-18 14:04 | PN ---
"Teaching Attending Note Name of Resident: González Devi ATTENDING PHYSICIAN STATEMENT I saw and evaluated the patient. I reviewed the resident's note and discussed the case with the resident. I agree with the resident's findings and plan as documented. 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 Previous detox at this [facility] December 2018 , left 2/2 family emergency . bup - states started taking recreationally from family ( sister) claims 8 mg bid latest 2 days ago , denies heroin use or any opioids . rx as below , states taking as needed tobacco : 1/2 ppd PMHx : Bipolar d/o on Latuda Trazodone and Prozac . PSHx : lumbar fusion L5-S1 1999. OBJECTIVE: intoxicated , no UE tremors CV : RRR s1s2 , tachycardia . RESP : CTA b/l This report was requested by: Nuha Ferrera | Reference #: [id number] Others' Prescriptions Patient Name: Ambar Barnett Date: 1965 Address: [address] [place] [address] Sex: Female Rx Written Rx Dispensed Drug Quantity Days Supply Prescriber Name 02/11/2019 02/12/2019 lorazepam 1 mg tablet 56 14 Citlalli Blake MD 01/12/2019 01/12/2019 lorazepam 1 mg tablet 56 14 Tristan Rudolph 01/06/2019 01/07/2019 lorazepam 1 mg tablet 14 4 Tristan Rudolph 12/13/2018 12/14/2018 lorazepam 1 mg tablet 120 30 Tristan Rudolph 12/02/2018 12/03/2018 lorazepam 2 mg tablet 60 30 Ashwin Carcamo MD 11/08/2018 11/08/2018 lorazepam 1 mg tablet 120 30 Ashwin Carcamo MD 10/13/2018 10/15/2018 lorazepam 2 mg tablet 120 30 Deonte Rodriguez MD 09/19/2018 09/20/2018 lorazepam 2 mg tablet 120 30 Deonte Rodriguez MD 08/18/2018 08/25/2018 lorazepam 2 mg tablet 120 30 Deonte Rodriguez MD 07/28/2018 07/28/2018 lorazepam 2 mg tablet 120 30 Deonte Rodriguez MD 06/30/2018 07/02/2018 lorazepam 2 mg tablet 120 30 Deonte Rodriguez MD Patient Name: Jacqueline Barnett Date: 1965 Address: [address] [place] [address] Sex: Female Rx Written Rx Dispensed Drug Quantity Days Supply Prescriber Name 02/08/2019 02/10/2019 lorazepam 1 mg tablet 8 2 Tristan Rudolph 01/26/2019 01/26/2019 lorazepam 1 mg tablet 56 14 KlaudiaTristan 06/02/2018 06/02/2018 lorazepam 2 mg tablet 120 30 Deonte Rodriguez MD 04/03/2018 04/03/2018 lorazepam 2 mg tablet 120 30 Deonte Rodriguez MD 02/27/2018 03/02/2018 lorazepam 2 mg tablet 120 30 Deonte Rodriguez MD Patient Name: Jacqueline Barnett Date: 1965 Address: [address] [place] [id number] Sex: Female Rx Written Rx Dispensed Drug Quantity Days Supply Prescriber Name 07/30/2018 07/30/2018 oxycodone-acetaminophen 5-325 mg tab 9 3 Mary Brower DDS ASSESSMENT AND PLAN: ETOH intoxication - Librium taper ."
[2019-02-18] MEDS ORDERED: cloNIDine HCL 0.1 MG TABLET PO PRN (14:07)
[2019-02-18] MEDS: NICOTINE 7 MG/24 HOURS TOPICAL PATCH TD SCH (15:41)
[2019-02-18] MEDS: chlordiazePOXIDE HCL 25 MG CAPSULE PO PRN (15:42)
[2019-02-18 16:59] LABS: HEMATOCRIT 38.9 % (32.4-45.2); HEMOGLOBIN 13.3 GM/dL (10.7-15.3); MCH 31.1 pg (25.7-33.7); MCHC 34.2 g/dl (32.0-36.0); MEAN CELL VOLUME 91.1 fl (80-96); MEAN PLT VOLUME 8.6 fl (7.5-11.1); PLATELET COUNT 375 K/MM3 (134-434); RBC 4.27 M/mm3 (3.60-5.2); WHITE BLOOD COUNT 6.1 K/mm3 (4.0-10.0)
[2019-02-18 17:03] LABS: ALBUMIN 3.3 g/dl (3.4-5.0); BILIRUBIN,TOTAL 0.2 mg/dL (0.2-1); CREATININE 0.8 mg/dL (0.55-1.3); POTASSIUM 4.4 mmol/L (3.5-5.1); TOT PROT 6.6 g/dl (6.4-8.2)
--- NOTE | 2019-02-18 17:16 | CONSULT ---
[facility] Psychiatric Consult - Data Date of interview: 02/18/19 Admission source: [facility] Identifying data: Patient is a 53 year old single female, without children, unemployed, domiciled, and is financially supported by her boyfriend. This is one of multiple admissions for patient. Patient admitted to for alcohol dependence. Substance Abuse History: Smoking Cessation. Smoking history: Current every day smoker. Have you smoked in the past 12 months: Yes. Aproximately how many cigarettes per day: 10. Cigars Per Day: 0. Hx Chewing Tobacco Use: No. Initiated information on smoking cessation: Yes. 'Breaking Loose' booklet given : 02/18/19. - Substances abused. Alcohol. Substance route: Oral. Frequency: Daily. Amount used: 1 QUART OF VODKA/ 2 of 24 oOZS OF BEER. Age of first use: 43. Date of last use: 02/18/19. Other. Other (specify): SUBOXONE. Substance route: Oral. Frequency: Daily. Amount used: (2) 8 MG FILMS. Age of first use: 50. Date of last use: 02/16/19. None. Other ( specify): ATIVAN. Substance route: Oral. Frequency: Daily. Amount used: 2MG. Age of first use: 52. Date of last use: 02/11/19 Medical History: bilateral breast augmentation in 2005 Psychiatric History: Patient's first psychiatric contact was approximately 30 years ago to address issues of OCD and was prescribed prozac. Denies h/o psychiatric hospitalization and suicide attempts. Reports seeing numerous psychiatrist throughout her life. Patient is currently receiving Outpatient psychiatric care at [facility] outpatient clinic. Ms. Barnett is prescribed latuda 60mg + Trazodone 100mg + Prozac 80mg. She reports medication compliance but has missed several doses recently because of her alcohol dependence. At present patient reports feeling sad. Physical/Sexual Abuse/Trauma History: denies. Mental Status Exam - Mental Status Exam Alert and Oriented to: Time, Place, Person Cognitive Function: Good Patient Appearance: Well Groomed Mood: Euthymic Affect: Appropriate Patient Behavior: Appropriate, Cooperative Speech Pattern: Appropriate Voice Loudness: Normal Thought Process: Goal Oriented Thought Disorder: Not Present Hallucinations: Denies Suicidal Ideation: Denies Homicidal Ideation: Denies Insight/Judgement: Poor Sleep: Poorly Appetite: Fair Muscle strength/Tone: Normal Gait/Station: Normal Psychiatric Findings - Problem List ([place] 1, 2,3) (1) Bipolar II disorder Current Visit: Yes Status: Acute (2) Alcohol use disorder Current Visit: Yes Status: Acute (3) Nicotine dependence Current Visit: Yes Status: Acute Qualifiers: Nicotine product type: cigarettes Substance use status: uncomplicated Qualified Code(s): F17.210 - Nicotine dependence, cigarettes, uncomplicated - Initial Treatment Plan Initial Treatment Plan: Psychoeducation provided. Detoxification in progress. Will order Latuda@1800 + Trazodone 50mg (reduce dosage) and Prozac 60mg (reduce dosage. patient is prescribed 80mg but states it is to high of a dose and prefers to take 60mg). Benefits and side effects discussed. Verbal consent given.
[2019-02-18] MEDS: chlordiazePOXIDE HCL 25 MG CAPSULE PO SCH ×2 (17:27→22:24)
[2019-02-18] MEDS: LURASIDONE HCL 20 MG TABLET PO SCH (17:47)
[2019-02-18] MEDS: THIAMINE HCL 100 MG TABLET (FP) PO SCH (22:24)
[2019-02-18] MEDS: traZODone HCL 100 MG TABLET (FP) PO SCH (22:24)
[2019-02-19] MEDS: chlordiazePOXIDE HCL 25 MG CAPSULE PO SCH ×4 (05:47→22:55)
[2019-02-19] MEDS ORDERED: FLUoxetine HCL 20 MG CAPSULE (FP) PO SCH ×2 (10:00)
[2019-02-19] MEDS ORDERED: PRENATAL VITAMINS W/ FOLIC ACID TABLET (FP) PO SCH (10:00)
[2019-02-19] MEDS: NICOTINE 7 MG/24 HOURS TOPICAL PATCH TD SCH (10:15)
[2019-02-19] MEDS: IBUPROFEN 400 MG TABLET (FP) PO PRN ×2 (10:16→17:48)
[2019-02-19] MEDS: METHOCARBAMOL 500 MG TABLET PO PRN ×2 (10:16→22:57)
--- NOTE | 2019-02-19 12:54 | PN ---
[facility] CIWA - CIWA Score Nausea/Vomitin-No Nausea/No Vomiting Muscle Tremors: 2 Anxiety: 2 Agitation: 2 Paroxysmal Sweats: 3 Orientation: 0-Oriented Tacttile Disturbances: 0-None Auditory Disturbances: 0-None Visual Disturbances: 0-None Headache: 1-Very Mild CIWA-Ar Total Score: 10 BHS COWS - Scale Resting Pulse: 1= CT 81-100 Sweatin= Chills/Flushing Restless Observation: 1= Difficult to Sit Still Pupil Size: 0= Normal to Room Light Bone or Joint Aches: 2= Severe Diffuse Aches Runny Nose/ Eye Tearin= None GI Upset > 30mins: 0= None Tremor Observation of Outstretched Hands: 2= Slight Tremor Visible Yawning Observation: 1= 1-2x During Session Anxiety or Irritability: 2=Irritable/Anxious Goose Flesh Skin: 0=Smooth Skin COWS Score: 10 BHS Progress Note (SOAP) Subjective: c/o anxiety, irritability, headache, shakes, and muscle aches. Objective: 02/19/19 12:53 Vital Signs 02/19/19 06:00 Temperature 97.7 F Pulse Rate 80 Respiratory 16 Rate Blood Pressure 110/69 Assessment: 02/19/19 12:53 AOX3, in no acute respiratory distress Full ROM, ambulating in the unit. Withdrawal symptoms. Plan: continue detox.
[2019-02-19] MEDS: chlordiazePOXIDE HCL 25 MG CAPSULE PO PRN (13:03)
[2019-02-19] MEDS: LURASIDONE HCL 20 MG TABLET PO SCH (19:12)
[2019-02-19] MEDS: THIAMINE HCL 100 MG TABLET (FP) PO SCH (22:55)
[2019-02-19] MEDS: traZODone HCL 100 MG TABLET (FP) PO SCH (22:59)
[2019-02-20] MEDS ORDERED: chlordiazePOXIDE HCL 25 MG CAPSULE PO SCH (05:00)
[2019-02-20 06:57] VITALS: BP 113/75; PULSE 72; TEMP 97.7
--- NOTE | 2019-02-20 11:56 | DS ---
[facility] Detox Discharge Summary Admission Date: 02/18/19 Discharge Date: 02/20/19 - History Present History: Alcohol Dependence, Opioid Dependence Additional Comments: Patient demanded to leave AMA despite encouragement from staff to complete detox. As per patient, she is feeling fine and doesn't need to be here anymore. Patient denies any withdrawal symptoms. Patient instructed to call [phone] [email or web address] if withdrawal symptoms or feeling sick and to see her PCP within 3 days in which she verbalized understanding. Patient left the unit in stable condition and in nad. Pertinent Past History: Alcohol dependence Opioid dependence Depression Bipolar disorder Nicotine dependence Sedative dependence - Physical Exam Results Vital Signs: Vital Signs Temperature 97.7 F 02/20/19 06:00 Pulse Rate 72 02/20/19 06:00 Respiratory Rate 16 02/20/19 06:00 Blood Pressure 113/75 02/20/19 06:00 O2 Sat by Pulse Oximetry (%) Pertinent Admission Physical Exam Findings: Withdrawal symptoms Laboratory Tests 02/18/19 02/18/19 02/18/19 14:30 14:30 14:30 WBC 6.1 RBC 4.27 Hgb 13.3 Hct 38.9 MCV 91.1 MCH 31.1 MCHC 34.2 RDW 13.0 Plt Count 375 MPV 8.6 Sodium 141 Potassium 4.4 Chloride 107 Carbon Dioxide 29 Anion Gap 4 L BUN 14.0 Creatinine 0.8 Est GFR (CKD-EPI)AfAm 96.19 Est GFR (CKD-EPI)NonAf 83.00 Random Glucose 106 Calcium 9.0 Total Bilirubin 0.2 AST 17 ALT 19 Alkaline Phosphatase 68 Total Protein 6.6 Albumin 3.3 L RPR Titer Nonreactive Labs reviewed - Medication Discharge Medications: Ambulatory Orders traZODone HCL [Desyrel -] 100 mg PO HS #30 tablet 03/07/18 Lurasidone HCl [Latuda -] 60 mg PO DAILY 09/12/18 Fluoxetine HCl [Prozac -] 80 mg PO DAILY 02/18/19 - Diagnosis (1) Depression Status: Acute Qualifiers: Depression Type: major depressive disorder (2) Nicotine dependence Status: Chronic Qualifiers: Nicotine product type: cigarettes Substance use status: uncomplicated Qualified Code(s): F17.210 - Nicotine dependence, cigarettes, uncomplicated (3) Alcohol dependence with uncomplicated withdrawal Status: Acute (4) Benzodiazepine dependence Status: Acute (5) Opioid dependence with withdrawal Status: Acute (6) Bipolar II disorder Status: Chronic - AMA Did Patient Leave Against Medical Advice: Yes (Instructed to call 911 [email or web address] and see PCP within 3 days)
[2019-02-21] MEDS ORDERED: chlordiazePOXIDE HCL 10 MG CAPSULE PO PRN
[2019-02-21] MEDS ORDERED: chlordiazePOXIDE HCL 10 MG CAPSULE PO SCH (05:00)
[2019-02-22] MEDS ORDERED: chlordiazePOXIDE HCL 10 MG CAPSULE PO SCH (05:00)
[2019-02-23] MEDS ORDERED: chlordiazePOXIDE HCL 10 MG CAPSULE PO ONE (05:00)
== END 2019-02-20 09:41 | disposition left against medical advice (07) | DRG 770 ==
LOC: YASAS 11:11 → Y6N 14:26
PROVIDERS: ADMIT Surgery; ATTEND Surgery
PROC: HZ2ZZZZ Detoxification Services for Substance Abuse Treatment (ICD-10-PCS; principal; 2019-02-18)
DX: F11.23 Opioid dependence with withdrawal (principal); F10.230 Alcohol dependence with withdrawal, uncomplicated; F13.230 Sedative, hypnotic or anxiolytic dependence with withdrawal, uncomplicated; F17.210 Nicotine dependence, cigarettes, uncomplicated; F31.81 Bipolar II disorder; F41.9 Anxiety disorder, unspecified; Z98.86 Personal history of breast implant removal; Z88.5 Allergy status to narcotic agent
CPT/HCPCS: 36415; 80053; 85027; 86593

== ENCOUNTER 2020-05-15 18:09 | Inpatient (IN) | payer OTHER ==
--- OUTSIDE RECORDS SUMMARY | 2020-05-15 18:23 | XMS ---
:1965 Author Organization [facility] Care Team Providers Name Role Phone NEENA US Unavailable Unavailable CELESTE XAVIER Unavailable Unavailable DESMOND OKEEFE Unavailable Unavail able [facility][id number], [id number] Unavailable Unavailable SCOTT CLANCY Unavailable Unavailable LOI HUITRON MD Unavailable Unavailable MD Klaudia Unavailable Unavailable MD Klaudia Unavailable Unavailable MD Klaudia Unavailable Unavailable MD Klaudia Unavailable Unavailable MD Klaudia Unavailable Unavailable RODRIGO GODFREY Unavailable Unavailable MD VALE Unavailable Unavailable [facility] Unavailable Unavailable MD SARAH Unavailable Unavailable Re-disclosure Warning The records that you are about to access may contain information from federally- assisted alcohol or drug abuse programs. If such information is present, then the following federally mandated warning applies: This information has been disclosed to you from records protected by federal confidentiality rules (42 CFR part 2). The federal rules prohibit you from making any further disclosure of this information unless further disclosure is expressly permitted by the written consent of the person to whom it pertains or as otherwise permitted by 42 CFR part 2. A general authorization for the release of medical or other information is NOT sufficient for this purpose. The Federal rules restrict any use of the information to criminally investigate or prosecute any alcohol or drug abuse patient.The records that you are about to access may contain highly sensitive health information, the redisclosure of which is protected by Article 27-F of the [facility] Public Health law. If you continue you may haveaccess to information: Regarding HIV / AIDS; Provided by facilities licensed or operated by the [facility] Office of Mental Health; or Provided by the [facility] Office for People With Developmental Disabilities. If such information is present, then the following [facility] mandated warning applies: This information has been disclosed to you from confidential records which are protected by state law. State law prohibits you from making any further disclosure of this information without the specific written consent of the person to whom it pertains, or as otherwise permitted by law. Any unauthorized further disclosure in violation of state law may result in a fine or fpc sentence or both. A general authorization for the release of medical or other information is NOT sufficient authorization for further disclosure. Allergies and Adverse Reactions Type Description Substance Reaction Status Data Source(s ) codine codine codine rash Active eCW2 ([facility]) codine codine codine rash Active eCW2 ([facility]) Encounters Encounter Providers Location Date Indications Data Source(s ) Outpatient Attender: [facility] 11/15/2019 [facility] Jamil SMITHAdmitter: 09:06:00 AM Hos bony GODFREY EDT Attender: 09/30/2019 [id number] 10:54:00 AM Hos pital .[id number] [facility]_6766 Outpatient Attender: [id number] 09/27/2019 [facility] ([facility] 01:54:04 PM [facility] linda) EST Patient admitted. Outpatient Attender: DESMOND COLLAZO 06/29/2019 12:15: 00 [facility] RENATOERAdmitter: PM [facility] DESMOND COOPEReferrer: DESMOND LOGAN Outpatient Attender: DESMOND CALVILLO 03/31/2019 10:01:00 [facility] TRISTONZOSAdmitter: SCOTT CLANCY AM EDT - 11/25/2019 Hospital 11:49:00 AM EDT Patient discharged. Attender: 03/31/2019 [facility] [place] [id number] 10:01:00 [facility] LOI Yu: STCrow 9 [facility] Jamil Graffitter: CELESTE 10:17:00 AM EDT - [facility] 03/30/2019 03:30:00 PM EDT Patient discharged. Attender: 03/29/2019 [facility] [id number] 10:17:00 AM [facility]_6766 [facility] Outpatient Attender: Tristan Rudolph 03/18/2019 [place] MDAdmitter: Tristan Rudolph MD 06:00:00 AM [facility] Outpatient Attender: Tristan Rudolph 02/11/2019 [place] MDAdmitter: Tristan Rudolph MD 06:00:00 AM [facility] Outpatient Attender: Tristan Rudolph 02/09/2019 [place] MDAdmitter: Tristan Rudolph MD 06:00:00 AM [facility] Outpatient Attender: Tristan Rudolph 01/12/2019 [place] MDAdmitter: Tristan Rudolph MD 06:00:00 AM [facility] Outpatient Attender: Tristan Rudolph 12/13/2018 [place] MDAdmitter: Tristan Rudolph MD 06:00:00 AM [facility] Outpatient 12/10/2018 [facility] 02:09:01 PM [facility] Outpatient Attender: NEENA USAdmitter: 11/12/2018 [place] NEENA US 06:00:00 AM [facility] 09/03/2018 eCW2 ([facility] 12:00:00 AM [facility]) [facility] 07/30/2018 eCW2 ([facility] 12:00:00 AM [facility]) [facility] 07/28/2018 eCW2 ([facility] 12:00:00 AM [facility]) Attender: 05/03/2018 [facility] [id number] 10:15:00 AM [facility]6766 [facility] Hospital Attender: 04/30/2018 [facility] [id number] 10:13:[address] Attender: 07/10/2017 [facility] [id number] 03:50:[address] Attender: 07/10/2017 [facility] [id number] 10:27:[address] 08/16/2015 eCW2 ([facility] 12:00:00 AM [facility]) [facility] 05/03/2014 eCW2 ([facility] 12:00:00 AM [facility]) [facility] 05/03/2014 eCW2 ([facility] 12:00:00 AM [facility]) [facility] 04/29/2014 eCW2 ([facility] 12:00:00 AM [facility]) [facility] 04/29/2014 eCW2 ([facility] 12:00:00 AM [facility]) [place] [facility] 10/20/2013 eCW2 ([facility] 12:00:00 AM [facility]) [facility] 08/31/2013 eCW2 ([facility] 12:00:00 AM [facility]) [facility] 05/10/2013 eCW2 ([facility] 12:00:00 AM [facility]) [facility] 04/15/2013 eCW2 ([facility] 12:00:00 AM [facility]) [facility] 03/19/2013 eCW2 ([facility] 12:00:00 AM [facility]) [facility] 03/15/2013 eCW2 ([facility] 12:00:00 AM [facility]) [facility] 02/22/2013 eCW2 ([facility] 12:00:00 AM [facility]) [facility] 02/02/2013 eCW2 ([facility] 12:00:00 AM [facility]) [facility] 02/02/2013 eCW2 ([facility] 12:00:00 AM [facility]) [facility] 01/26/2013 eCW2 ([facility] 12:00:00 AM [facility]) [facility] 01/18/2013 eCW2 ([facility] 12:00:00 AM [facility]) [facility] 01/18/2013 eCW2 ([facility] 12:00:00 AM [facility]) Attender: 11/30/2012 [facility] [id number] 01:45:[address] 09/09/2012 eCW2 ([facility] 12:00:00 AM [facility]) [facility] 08/16/2012 eCW2 ([facility] 12:00:00 AM [facility]) Attender: 07/23/2012 [facility] [id number] 03:11:[address] Attender: 07/22/2012 [facility] [id number] 04:08:[address] Open [place] 07/09/2012 eCW2 ([facility] 12:00:00 AM [facility]) [facility] 02/09/2012 eCW2 ([facility] 12:00:00 AM [facility]) [facility] 11/14/2011 eCW2 ([facility] 12:00:00 AM [facility]) [facility] 04/04/2011 eCW2 ([facility] 12:00:00 AM [facility]) Attender: 03/06/2011 [facility] [id number] 11:05:00 AM [facility]_6766 T Hospital Attender: 03/03/2011 [place] [id number] 06:40:00 PM [facility]_6766 T Hospital Attender: 09/19/2009 [facility] [id number] 12:28:00 PM [facility]_6766 [facility] Hospital Attender: 03/07/2009 [place] [id number] 08:12:00 PM [facility]_6766 T Hospital Attender: 06/14/1997 [place] [id number] 11:00:00 AM [facility]6766 [facility] Hospital Attender: 06/14/1997 [place] [id number] 09:00:00 AM [facility]6766 [facility] Hospital Attender: [place] [id number] [place] [id number] [facility] Immunizations Vaccine Date Status Description Data Source(s) No Known Immunizations completed eCW2 ([facility]) No Known Immunizations completed eCW2 ([facility]) Medications Medication Brand Start Product Dose Route Administrative Pharmacy [facility] Indications Reaction Description Data Name Date Form Instructions Instructions Source(s) Naltrexone Naltre ORAL complet [facility]rex one [facility] Table ed HCl - 50 MG [facility] 50 MG HCl - 12:00: t ORAL Tablet H ospital Oral Tablet 50 MG 00 AM ORAL EDT Tablet buspirone busPIR ORAL complet busPIRon e [facility] hydrochlori one 2019 Table ed HCl - 15 MG [facility] 15 MG HCl - 12:00: t ORAL Tablet H ospital Oral Tablet 15 MG 00 AM ORAL EDT Tablet Trazodone traZOD ORAL complet traZODon e [facility] Hydrochlori one 2019 Table ed hydrochlorid [facility] 100 MG hydroc 12:00: t e - 100 MG Hospital Oral Tablet hlorid 00 AM ORAL Table t e - EDT 100 MG ORAL Tablet Lurasidone Latuda ORAL complet Latuda - 60 [facility] Hydrochlori - 60 2019 Table ed MG ORAL [facility] 60 MG MG 12:00: t Tablet Hospita l Oral Tablet ORAL 00 AM [Latuda] Tablet EDT Fluoxetine FLUoxe ORAL complet FLUoxet ine [facility] 40 MG Oral fany 2019 Capsu ed HCl - 40 MG V incents Capsule HCl - 12:00: le ORAL Capsule H ospital 40 MG 00 AM ORAL EDT Capsul e Clonazepam clonaz ORAL complet clonaze SAUL - [facility] 0.5 MG Oral ePA2019 Table ed 0.5 MG ORA L [facility] Tablet 0.5 MG 12:00: t Tablet Hospita l ORAL 00 AM Tablet EDT Lurasidone Latuda ORAL complet Latuda - 60 [facility] Hydrochlori - 60 2019 Table ed MG ORAL [facility] 60 MG MG 12:00: t Tablet Hospita l Oral Tablet ORAL 00 AM [Latuda] Tablet EDT Clonazepam clonaz ORAL complet clonaze SAUL - [facility] 0.5 MG Oral ePA2019 Table ed 0.5 MG ORA L [facility] Tablet 0.5 MG 12:00: t Tablet Hospita l ORAL 00 AM Tablet EDT Fluoxetine FLUoxe ORAL complet FLUoxet ine [facility] 40 MG Oral fany 2019 Capsu ed HCl - 40 MG [facility] incents Capsule HCl - 12:00: le ORAL Capsule H ospital 40 MG 00 AM ORAL EDT Capsul e 24 HR Nicoti TRANSD complet Nicotine - [facility] Nicotine ne 2019 Patch ERMAL ed 21 MG/24 HR Vi ncents 0.875 MG/HR 21 12:00: TRANSDERMAL Hospital Transdermal MG/ AM Patch, Patch HR EDT Extended TRANSD Release ERMAL Patch, Extend ed Releas e buspirone busPIR ORAL complet busPIRon e [facility] hydrochlori one 2019 Table ed HCl - 15 MG [facility] 15 MG HCl - 12:00: t ORAL Tablet H ospital Oral Tablet 15 MG 00 AM ORAL EDT Tablet Naltrexone Naltre ORAL complet Naltrex one [facility] hydrochlori xone 2019 Table ed HCl - 50 MG [facility] 50 MG HCl - 12:00: t ORAL Tablet H ospital Oral Tablet 50 MG 00 AM ORAL EDT Tablet Trazodone traZOD ORAL complet traZODon e [facility] Hydrochlori one 2019 Table ed hydrochlorid [facility] 100 MG hydroc 12:00: t e - 100 MG Hospital Oral Tablet hlorid 00 AM ORAL Table t e - EDT 100 MG ORAL Tablet Clonazepam clonaz ORAL complet clonaze SAUL - [facility] 0.5 MG Oral ePAM 2019 Table ed 0.5 MG ORA L [facility] Tablet 0.5 MG 12:00: t Tablet Hospita l ORAL 00 AM Tablet EDT Fluoxetine FLUoxe ORAL complet FLUoxet ine [facility] 40 MG Oral fany 2019 Capsu ed HCl - 40 MG V incents Capsule HCl - 12:00: le ORAL Capsule H ospital 40 MG 00 AM ORAL EDT Capsul e Lurasidone Latuda ORAL complet Latuda - 60 [facility] Hydrochlori - 60 2019 Table ed MG ORAL [facility] 60 MG MG 12:00: t Tablet Hospita l Oral Tablet ORAL 00 AM [Latuda] Tablet EDT buspirone busPIR ORAL complet busPIRon e [facility] hydrochlori one 2019 Table ed HCl - 15 MG [facility] 15 MG HCl - 12:00: t ORAL Tablet H ospital Oral Tablet 15 MG 00 AM ORAL EDT Tablet Trazodone traZOD ORAL complet traZODon e [facility] Hydrochlori one 2019 Table ed hydrochlorid [facility] 100 MG hydroc 12:00: t e - 100 MG Hospital Oral Tablet hlorid 00 AM ORAL Table t e - EDT 100 MG ORAL Tablet Clonazepam clonaz ORAL complet clonaze SUAL - [facility] 0.5 MG Oral ePAM 2019 Table ed 0.5 MG ORA L [facility] Tablet 0.5 MG 12:00: t Tablet Hospita l ORAL 00 AM Tablet EDT Fluoxetine FLUoxe ORAL complet FLUoxet ine [facility] 40 MG Oral fany 2019 Capsu ed HCl - 40 MG [facility]ents Capsule HCl - 12:00: le ORAL Capsule H ospital 40 MG 00 AM ORAL EDT Capsul e Clonazepam clonaz ORAL complet clonaze SAUL - [facility] 0.5 MG Oral ePAM - 2019 Table ed 0.5 MG ORA L [facility] Tablet 0.5 MG 12:00: t Tablet Hospita l ORAL 00 AM Tablet EDT Lurasidone Latuda ORAL complet Latuda - 60 [facility] - 60 2019 Table ed MG ORAL [facility] 60 MG MG 12:00: t Tablet Hospita l Oral Tablet ORAL 00 AM [Latuda] Tablet EDT Trazodone traZOD ORAL complet traZODon e [facility] 2019 Table ed hydrochlorid [facility] 100 MG hydroc 12:00: t e - 100 MG Hospital Oral Tablet hlorid 00 AM ORAL Table t e - EDT 100 MG ORAL Tablet buspirone busPIR [facility] Table ed HCl - 15 MG [facility] 15 MG HCl - 12:00: t ORAL Tablet H ospital Oral Tablet 15 MG 00 AM ORAL EDT Tablet Lurasidone [facility]uda [facility] 60 2019 Table ed MG ORAL [facility] 60 MG MG 12:00: t Tablet Hospita l Oral Tablet ORAL 00 AM [Latuda] Tablet EDT buspirone busPIR ORAL [facility] Table ed HCl - 15 MG [facility] 15 MG HCl - 12:00: t ORAL Tablet H ospital Oral Tablet 15 MG 00 AM ORAL EDT Tablet Fluoxetine FLUoxe ORAL complet FLUoxet ine [facility] 40 MG Oral fany 2019 Capsu ed HCl - 40 MG [facility]ents Capsule HCl - 12:00: le ORAL Capsule H ospital 40 MG 00 AM ORAL EDT Capsul e Trazodone traZOD [facility] Table ed hydrochlorid [facility] 100 MG hydroc 12:00: t e - 100 MG Hospital Oral Tablet hlorid 00 AM ORAL Table t e - EDT 100 MG ORAL Tablet 24 HR Nicoti TRANSD complet Nicotine - [facility] Nicotine 2019 Patch ERMAL ed 21 MG/24 HR Vi ncents 0.875 MG/HR 21 12:00: TRANSDERMAL Hospital Transdermal MG/24 00 AM Patch, Patch HR EDT Extended TRANSD Release ERMAL Patch, Extend ed Releas e Clonazepam clonaz ORAL complet clonaze SAUL - [facility] 0.5 MG Oral ePAM - 2019 Table ed 0.5 MG ORA L [facility] Tablet 0.5 MG 12:00: t Tablet Hospita l ORAL 00 AM Tablet EDT 24 HR Nicoti TRANSD complet Nicotine - [facility] Nicotine ne - 2019 Patch ERMAL ed 21 MG/24 HR Vi ncents 0.875 MG/HR 21 12:00: TRANSDERMAL Hospital Transdermal MG/24 00 AM Patch, Patch HR EDT Extended TRANSD Release ERMAL Patch, Extend ed Releas e Naltrexone Naltre ORAL complet Naltrex one [facility] hydrochlori xone 2019 Table ed HCl - 50 MG [facility] 50 MG HCl - 12:00: t ORAL Tablet H ospital Oral Tablet 50 MG 00 AM ORAL EDT Tablet Fluoxetine FLUoxe ORAL complet FLUoxet ine [facility] 40 MG Oral fany 2019 Capsu ed HCl - 40 MG V incents Capsule HCl - 12:00: le ORAL Capsule H ospital 40 MG 00 AM ORAL EDT Capsul e Nicotine 4 Equate ORAL complet Equate [facility] MG Chewing Nicoti 2019 Each ed Nicotine - 4 [facility] Gum ne - 4 12:00: MG ORAL Gum Hosp ital MG 00 AM ORAL EDT Gum Lurasidone Latuda ORAL complet Latuda - 60 [facility] Hydrochlori - 60 2019 Table ed MG ORAL [facility] 60 MG MG 12:00: t Tablet Hospita l Oral Tablet ORAL 00 AM [Latuda] Tablet EDT buspirone busPIR ORAL complet busPIRon e [facility] hydrochlori one 2019 Table ed HCl - 15 MG [facility] 15 MG HCl - 12:00: t ORAL Tablet H ospital Oral Tablet 15 MG 00 AM ORAL EDT Tablet Clonazepam clonaz ORAL complet clonaze SAUL - [facility] 0.5 MG Oral ePAM - 2019 Table ed 0.5 MG ORA L [facility] Tablet 0.5 MG 12:00: t Tablet Hospita l ORAL 00 AM Tablet EDT Trazodone traZOD ORAL complet traZODon e [facility] Hydrochlori one 2019 Table ed hydrochlorid [facility] 100 MG hydroc 12:00: t e - 100 MG Hospital Oral Tablet hlorid 00 AM ORAL Table t e - EDT 100 MG ORAL Tablet Clonazepam clonaz ORAL complet clonaze SAUL - [facility] 0.5 MG Oral ePA2019 Table ed 0.5 MG ORA L [facility] Tablet 0.5 MG 12:00: t Tablet Hospita l ORAL 00 AM Tablet EST Trazodone traZOD ORAL complet traZODon e [facility] Hydrochlori one 2019 Table ed hydrochlorid [facility] 100 MG hydroc 12:00: t e - 100 MG Hospital Oral Tablet hlorid 00 AM ORAL Table t e - EST 100 MG ORAL Tablet Lurasidone Latuda ORAL complet Latuda - 60 [facility] Hydrochlori - 60 2019 Table ed MG ORAL [facility] 60 MG MG 12:00: t Tablet Hospita l Oral Tablet ORAL 00 AM [Latuda] Tablet EST buspirone busPIR ORAL complet busPIRon e [facility] hydrochlori one 2019 Table ed HCl - 15 MG [facility] 15 MG HCl - 12:00: t ORAL Tablet H ospital Oral Tablet 15 MG 00 AM ORAL EST Tablet Fluoxetine FLUoxe ORAL complet FLUoxet ine [facility] 40 MG Oral fany 2019 Capsu ed HCl - 40 MG V incents Capsule HCl - 12:00: le ORAL Capsule H ospital 40 MG 00 AM ORAL EST Capsul e Naltrexone Naltre ORAL complet Naltrex one [facility] hydrochlori xone 2019 Table ed HCl - 50 MG [facility] 50 MG HCl - 12:00: t ORAL Tablet H ospital Oral Tablet 50 MG 00 AM ORAL EST Tablet Clonazepam clonaz ORAL complet clonaze SAUL - [facility] 0.5 MG Oral ePAM - 2019 Table ed 0.5 MG ORA L [facility] Tablet 0.5 MG 12:00: t Tablet Hospita l ORAL 00 AM Tablet EST Trazodone traZOD ORAL complet traZODon e [facility] Hydrochlori one 2019 Table ed hydrochlorid [facility] 100 MG hydroc 12:00: t e - 100 MG Hospital Oral Tablet hlorid 00 AM ORAL Table t e - EST 100 MG ORAL Tablet Naltrexone Vivitr INTRAM complet Vivit rol - [facility] 112 MG/ML 2019 Appli USCULA ed 380 MG Moose nts Injectable 380 MG 12:00: kimi Calles INTRAMUSC [facility] Suspension INTRAM 00 AM n R Powder fo r [Vivitrol] USCULA EST Suspension, R Extended Powder Release for Suspen diane, Extend ed Releas e buspirone busPIR ORAL complet busPIRon e [facility] hydrochlori one 2019 Table ed HCl - 15 MG [facility] 15 MG HCl - 12:00: t ORAL Tablet H ospital Oral Tablet 15 MG 00 AM ORAL EST Tablet Fluoxetine FLUoxe ORAL complet FLUoxet ine [facility] 40 MG Oral fany 2019 Capsu ed HCl - 40 MG [facility] incents Capsule HCl - 12:00: le ORAL Capsule H ospital 40 MG 00 AM ORAL EST Capsul e Lurasidone Latuda ORAL complet Latuda - 60 [facility] Hydrochlori - 60 2019 Table ed MG ORAL [facility] 60 MG MG 12:00: t Tablet Hospita l Oral Tablet ORAL 00 AM [Latuda] Tablet EST Clonazepam clonaz ORAL complet clonaze SAUL - [facility] 0.5 MG Oral ePAM - 2018 Table ed 0.5 MG ORA L [facility] Tablet 0.5 MG 12:00: t Tablet Hospita l ORAL 00 AM Tablet EST Nicotine 4 Equate ORAL complet Equate [facility] MG Chewing Nicoti 2018 Each ed Nicotine - 4 [facility] Gum ne - 4 12:00: MG ORAL Gum Hosp ital MG 00 AM ORAL EST Gum Lurasidone Latuda ORAL complet Latuda - 60 [facility] Hydrochlori - 60 2018 Table ed MG ORAL [facility] 60 MG MG 12:00: t Tablet Hospita l Oral Tablet ORAL 00 AM [Latuda] Tablet EST 24 HR Nicoti TRANSD complet Nicotine - [facility] Nicotine ne - 2018 Patch ERMAL ed 21 MG/24 HR Vi ncents 0.875 MG/HR 21 12:00: TRANSDERMAL Hospital Transdermal MG/24 00 AM Patch, Patch HR EST Extended TRANSD Release ERMAL Patch, Extend ed Releas e Naltrexone Revia ORAL complet Revia - 50 [facility] hydrochlori - 50 2018 Table ed MG ORAL [facility] 50 MG MG 12:00: t Tablet Hospita l Oral Tablet ORAL 00 AM [ReVia] Tablet EST Fluoxetine FLUoxe ORAL complet FLUoxet ine [facility] 40 MG Oral fany 2018 Capsu ed HCl - 40 MG [facility] incents Capsule HCl - 12:00: le ORAL Capsule H ospital 40 MG 00 AM ORAL EST Capsul e buspirone busPIR ORAL complet [facility] Table ed HCl - 15 MG [facility] 15 MG HCl - 12:00: t ORAL Tablet H ospital Oral Tablet 15 MG 00 AM ORAL EST Tablet Trazodone traZOD ORAL complet [facility] Table ed hydrochlorid [facility] 100 MG hydroc 12:00: t e - 100 MG Hospital Oral Tablet hlorid 00 AM ORAL Table t e - EST 100 MG ORAL Tablet Clonazepam clonaz ORAL complet clonaze SAUL - [facility] 0.5 MG Oral [facility] 2018 Table ed 0.5 MG ORA L [facility] Tablet 0.5 MG 12:00: t Tablet Hospita l ORAL 00 AM Tablet EST Lurasidone Latuda ORAL complet Latuda - 60 [facility] Table ed MG ORAL [facility] 60 MG MG 12:00: t Tablet Hospita l Oral Tablet ORAL 00 AM [Latuda] Tablet EST buspirone busPIR ORAL complet busPIRon e [facility] hydrochlori 2018 Table ed HCl - 15 MG [facility] 15 MG HCl - 12:00: t ORAL Tablet H ospital Oral Tablet 15 MG 00 AM ORAL EST Tablet Lurasidone Latuda ORAL complet Latuda - 60 [facility] Table ed MG ORAL [facility] 60 MG MG 12:00: t Tablet Hospita l Oral Tablet ORAL 00 AM [Latuda] Tablet EST Clonazepam clonaz ORAL complet clonaze SAUL - [facility] 0.5 MG Oral ePA 2018 Table ed 0.5 MG ORA L [facility] Tablet 0.5 MG 12:00: t Tablet Hospita l ORAL 00 AM Tablet EST Fluoxetine FLUoxe ORAL complet FLUoxet ine [facility] 40 MG Oral fany 2018 Capsu ed HCl - 40 MG V incents Capsule HCl - 12:00: le ORAL Capsule H ospital 40 MG 00 AM ORAL EST Capsul e Trazodone traZOD ORAL complet [facility] Table ed hydrochlorid [facility] 100 MG hydroc 12:00: t e - 100 MG Hospital Oral Tablet hlorid 00 AM ORAL Table t e - EST 100 MG ORAL Tablet Fluoxetine FLUoxe ORAL complet FLUoxet ine [facility] 40 MG Oral fany 2018 Capsu ed HCl - 40 MG [facility]ents Capsule HCl - 12:00: le ORAL Capsule H ospital 40 MG 00 AM ORAL EDT Capsul e Clonazepam clonaz ORAL complet clonaze SAUL - [facility] 0.5 MG Oral ePAM - 2018 Table ed 0.5 MG ORA L [facility] Tablet 0.5 MG 12:00: t Tablet Hospita l ORAL 00 AM Tablet EDT buspirone busPIR ORAL complet busPIRon e [facility] hydrochlori one 2018 Table ed HCl - 15 MG [facility] 15 MG HCl - 12:00: t ORAL Tablet H ospital Oral Tablet 15 MG 00 AM ORAL EDT Tablet Lurasidone Latuda ORAL complet Latuda - 60 [facility] Hydrochlori - 60 2018 Table ed MG ORAL [facility] 60 MG MG 12:00: t Tablet Hospita l Oral Tablet ORAL 00 AM [Latuda] Tablet EDT Trazodone traZOD ORAL complet traZODon e [facility] Hydrochlori one 2018 Table ed hydrochlorid [facility] 100 MG hydroc 12:00: t e - 100 MG Hospital Oral Tablet hlorid 00 AM ORAL Table t e - EDT 100 MG ORAL Tablet Clonazepam clonaz ORAL complet clonaze SAUL - [facility] 0.5 MG Oral ePAM - 2018 Table ed 0.5 MG ORA L [facility] Tablet 0.5 MG 12:00: t Tablet Hospita l ORAL 00 AM Tablet EDT gabapentin Gabape ORAL complet Gabapen tin - [facility] 300 MG Oral ntin - 2018 Capsu ed 300 MG ORA L [facility] Capsule 300 MG 12:00: le Capsule Hospi darlene ORAL 00 AM Capsul EDT e buspirone busPIR ORAL complet busPIRon e [facility] hydrochlori one 2018 Table ed HCl - 10 MG [facility] de 10 MG HCl - 12:00: t ORAL Tablet H ospital Oral Tablet 10 MG 00 AM ORAL EDT Tablet Trazodone traZOD ORAL complet traZODon e [facility] Hydrochlori one 2018 Table ed hydrochlorid [facility] 100 MG hydroc 12:00: t e - 100 MG Hospital Oral Tablet hlorid 00 AM ORAL Table t e - EDT 100 MG ORAL Tablet Lurasidone Latuda ORAL complet Latuda - 60 [facility] Hydrochlori - 60 2018 Table ed MG ORAL [facility] de 60 MG MG 12:00: t Tablet Hospita l Oral Tablet ORAL 00 AM [Latuda] Tablet EDT 24 HR Nicoti TRANSD complet Nicotine - [facility] Nicotine ne - 2018 Patch ERMAL ed 21 MG/24 HR Vi ncents 0.875 MG/HR 21 12:00: TRANSDERMAL Hospital Transdermal MG/24 00 AM Patch, Patch HR EDT Extended TRANSD Release ERMAL Patch, Extend ed Releas e Nicotine 4 Equate ORAL complet Equate [facility] MG Chewing Nicoti 2018 Each ed Nicotine - 4 [facility] Gum ne - 4 12:00: MG ORAL Gum Hosp ital MG 00 AM ORAL EDT Gum Trazodone traZOD ORAL complet traZODon e [facility] Hydrochlori one 2018 Table ed hydrochlorid [facility] 100 MG hydroc 12:00: t e - 100 MG Hospital Oral Tablet hlorid 00 AM ORAL Table t e - EDT 100 MG ORAL Tablet buspirone busPIR ORAL complet busPIRon e - [facility] hydrochlori one 2018 Table ed 5 MG ORAL V [facility] de 5 MG 5 MG 12:00: t Tablet Hospital Oral Tablet ORAL 00 AM Tablet EDT Clonazepam clonaz ORAL complet clonaze SAUL - [facility] 0.5 MG Oral ePAM - 2018 Table ed 0.5 MG ORA L [facility] Tablet 0.5 MG 12:00: t Tablet Hospita l ORAL 00 AM Tablet EDT gabapentin Gabape ORAL complet Gabapen tin - [facility] 300 MG Oral ntin - 2018 Capsu ed 300 MG ORA L [facility] Capsule 300 MG 12:00: le Capsule Hospi darlene ORAL 00 AM Capsul EDT e Fluoxetine FLUoxe ORAL complet FLUoxet ine [facility] 40 MG Oral fany 2018 Capsu ed HCl - 40 MG [facility] Capsule HCl - 12:00: le ORAL Capsule H ospital 40 MG 00 AM ORAL EDT Capsul e Clonazepam clonaz 04/05/ 0.5 ORAL complet clonaze SAUL - [facility] 0.5 MG Oral ePA2018 Table ed 0.5 MG ORA L [facility] Tablet 0.5 MG 12:00: t Tablet Hospita l ORAL 00 AM Tablet EDT Naltrexone Revia ORAL complet [facility] 2018 Table ed MG ORAL [facility] 50 MG MG 12:00: t Tablet Hospita l Oral Tablet ORAL 00 AM [ReVia] Tablet EDT Lurasidone Latuda ORAL complet [facility] 2018 Table ed MG ORAL [facility] 60 MG MG 12:00: t Tablet Hospita l Oral Tablet ORAL 00 AM [Latuda] Tablet EDT Naltrexone Vivitr INTRAM complet Vivit rol - [facility] 112 MG/ML - 2018 Appli USCULA ed 380 MG Moose nts Injectable 380 MG 12:00: catio R INTRAMUSC [facility] Suspension INTRAM 00 AM n R Powder fo r [Vivitrol] USCULA EDT Suspension, R Extended Powder Release for Suspen diane, Extend ed Releas e Lurasidone Latuda ORAL complet Latuda - 60 [facility] 60 2018 Table ed MG ORAL [facility] 60 MG MG 12:00: t Tablet Hospita l Oral Tablet ORAL 00 AM [Latuda] Tablet EDT Clonazepam clonaz ORAL complet clonaze SAUL - [facility] 0.25 MG [facility] 2018 Table ed 0.25 MG ORAL V incents Disintegrat 0.25 12:00: t-ODT Tablet, Ho spital ing Oral MG 00 AM Disintegrati Tablet ORAL EDT ng Tablet , Disint egrati ng Trazodone traZOD ORAL complet traZODon e [facility] Hydrochlori one 2018 Table ed hydrochlorid [facility] 100 MG hydroc 12:00: t e - 100 MG Hospital Oral Tablet hlorid 00 AM ORAL Table t e - EDT 100 MG ORAL Tablet Fluoxetine FLUoxe ORAL complet FLUoxet ine [facility] 40 MG Oral fany 2018 Capsu ed HCl - 40 MG [facility] Capsule HCl - 12:00: le ORAL Capsule H ospital 40 MG 00 AM ORAL EDT Capsul e Percocet Percoc 07/30/ 1 tab(s) e CW2 (Open 5/325 325 et 2018 Door mg-5 mg 5/325 12:00: Family 325 00 AM Medical mg-5 EST Center) mg Amoxicillin amoxic 07/28/ suspend 1 cap( s) eCW2 (Open 500 MG Oral illin 2018 ed Door Capsule 500 mg 12:00: Family amoxicillin 00 AM Medical 500 mg EST Center) Ibuprofen ibupro 07/28/ suspend 1 tab(s) eCW2 (Open 800 MG Oral fen 2017 ed Door Tablet 800 mg 12:00: Family ibuprofen 00 AM Medical 800 mg EST Center) Ibuprofen ibupro 07/28/ active 1 tab(s) eCW2 (Open 800 MG Oral fen 2018 Door Tablet 800 mg 12:00: Family ibuprofen 00 AM Medical 800 mg EST Center) Amoxicillin amoxic 07/28/ active 1 cap(s ) eCW2 (Open 500 MG Oral illin 2018 Door Capsule 500 mg 12:00: Family amoxicillin 00 AM Medical 500 mg EST Center) Trazodone traZOD 07/14/ ORAL complet Darci nt Hydrochlori one 2016 ed [facility] 50 MG hydroc 12:00: Hospita l Oral Tablet hlorid 00 AM e - 50 EST MG ORAL Tablet Fluoxetine Prozac suspend 3 cap(s) eCW2 (Open 20 MG Oral 20 mg ed Door Capsule [facility] [Prozac] Medical Prozac 20 [place]) mg fentanyl 25 UNK suspend 1 PATCH eC W2 (Open mcg/hr ed Door [facility]) 0.8 ML Humira active 0 eCW2 (Ope n adalimumab Pen 40 Door 50 MG/ML mg/0.8 Family Auto-Inject mL Medical or [Humira] Center) Humira Pen 40 mg/0.8 mL 0.8 ML Humira suspend 0 eCW2 (Op en adalimumab Pen 40 ed Door 50 MG/ML mg/0.8 Family Auto-Inject mL Medical or [Humira] Center) Humira Pen 40 mg/0.8 mL Fluoxetine Prozac active 3 cap(s) e CW2 (Open 20 MG Oral 20 mg Door Capsule [facility] [Prozac] Medical Prozac 20 Center) mg Trazodone trazod active 1 tab(s) eC W2 (Open Hydrochlori one Door de 100 MG 100 mg Family Oral Tablet Medical trazodone [place]) 100 mg fentanyl 25 UNK suspend 1 PATCH eC W2 (Open mcg/hr ed Door [facility]) Trazodone trazod active 1 tab(s) eC W2 (Open Hydrochlori one Door de 100 MG 100 mg [facility] Oral [facility]t [facility] [place]) 100 mg Insurance Providers Payer name Policy type Policy ID Covered Covered libertarian's Policy P josie / Coverage libertarian ID relationship to [place] Inf ormation type goss MVP MEDICAID [id number] SP [id number] HMO SELF PAY [id number] Self [id number] MEDICAID OP [id number] Self [id number] MMC MVP [id number] Self [id number] HARMONIOUS MMC MVP [id number] Self [id number] HARMONIOUS HEALTHCARE MMC MVP [id number] Self [id number] HARMONIOUS SELF PAY 0000 Self 0000 MEDICAID OP [id number] Self [id number] MMC MVP [id number] Self [id number] 200 HARMONIOUS HEALTHCARE O MVP/HHP O [id number] 01 [id number] 200 MMC MVP [id number] Self [id number] 200 HARMONIOUS HEALTHCARE SELF PAY 000 Self 000 MEDICAID OP [id number] Self [id number] [facility] MVP [id number] Self [id number] 200 HE[employer]PLAN [place] [id number] SP [id number] HEALTH-MVP [place] [id number] SP [id number] HEALTH-MVP REPLACED BY [facility] [id number] SP [id number] NON CAP Problems, Conditions, and Diagnoses Code Display Name Description Problem Type Effective Data Sour ce(s) Dates 97653419 Personality Personality Complaint 07/10/2017 [facility] ts disorder disorder 12:00:00 PM Hospital (disorder) EST [id number] Cocaine abuse Cocaine abuse Complaint 07/10/2017 [facility] (disorder) 12:00:00 PM Hospital EST [id number] Alcohol abuse Alcohol abuse Complaint 07/10/2017 [facility] ncents (disorder) 12:00:00 PM Hospital EST [id number] Generalized Generalized Complaint 07/10/2017 [facility] ts anxiety disorder anxiety disorder 12:00:00 PM H ospital (disorder) EST [id number] Recurrent major Recurrent major Complaint 07/10/2017 [facility] depression depression 12:00:00 PM Hospital (disorder) EST [id number] Personality Personality Complaint 07/10/2017 [facility] ts disorder disorder 12:00:00 PM Hospital (disorder) EST [id number] Cocaine abuse Cocaine abuse Complaint 07/10/2017 [facility] (disorder) 12:00:00 PM Hospital EST [id number] Alcohol abuse Alcohol abuse Complaint 07/10/2017 [facility] [place] (disorder) 12:00:00 PM Hospital EST [id number] Generalized Generalized Complaint 07/10/2017 [facility] ts anxiety disorder anxiety disorder 12:00:00 PM H ospital (disorder) EST [id number] Recurrent major Recurrent major Complaint 07/10/2017 Tiffani kimi [place]gr[place] depression depression 12:00:00 PM Hospital (disorder) EST 780.79 Fatigue Fatigue Problem 03/15/2013 eCW2 (Open Doo r 12:00:00 AM [facility] EDT Center) 728.87 Weakness of Weakness of Problem 03/15/2013 eCW2 (Open D oor muscles muscles 12:00:00 AM [facility] EDT Center) 304.90 Polysubstance Polysubstance Problem 02/02/2013 eCW2 (Op en Door dependence dependence 12:00:00 AM [facility] EDT Center) 296.50 Bipolar affective Bipolar affective Problem 01/26/2013 eCW2 (Open Door disorder, disorder, 12:00:00 AM [facility] depressed depressed EDT Center) 296.30 Depression, major Depression, major Problem 02/09/2012 eCW2 (Open Door - recurrent NOS - recurrent NOS 12:00:00 AM [facility] EDT Center) 599.0 UTI [Urinary tract UTI [Urinary Problem 11/14/2011 eCW2 (Open Door infection] tract infection] 12:00:00 AM [facility] EDT Center) 305.1 Tobacco use Tobacco use Problem 11/14/2011 eCW2 (Open D oor 12:00:00 AM [facility] EDT Center) 616.10 Vaginitis Vaginitis Problem 11/14/2011 eCW2 (Open Doo r 12:00:00 AM [facility] EDT Center) [id number] Bipolar II Bipolar II Complaint 08/10/2009 [facility] disorder disorder 12:00:00 PM Hospital (disorder) EST [id number] Posttraumatic Posttraumatic Complaint 08/10/1999 [facility] [place] stress disorder stress disorder 12:00:00 PM Hos pital (disorder) EST F32.9 Major depressive MAJOR DEPRESSIVE Diagnosis 06/29/2019 [facility] Tony disorder, single DISORDER, SINGLE 12:15:00 PM [facility] episode, EPISODE, EST unspecified UNSPECIFIED F41.9 Anxiety disorder, ANXIETY DISORDER, Diagnosis 06/29/2019 [facility] unspecified UNSPECIFIED 12:15:[address] EST F17.200 Nicotine NICOTINE Diagnosis 06/29/2019 [facility] dependence, DEPENDENCE, 12:15:[address] unspecified, UNSPECIFIED, EST uncomplicated UNCOMPLICATED F11.20 Opioid dependence, OPIOID Diagnosis 06/29/2019 [facility] uncomplicated DEPENDENCE, 12:15:00 PM Medical C enter UNCOMPLICATED EST F10.20 Alcohol ALCOHOL Diagnosis 06/29/2019 [place] dependence, DEPENDENCE, 12:15:[address] uncomplicated UNCOMPLICATED EST M79.7 Fibromyalgia FIBROMYALGIA Diagnosis 02/11/2019 [place] 06:00:00 AM [facility] EDT Care hiogi L40.59 Other psoriatic OTHER PSORIATIC Diagnosis 02/11/2019 [place] o[place] arthropathy ARTHROPATHY 06:00:00 AM [facility] EDT [facility] F41.1 Generalized GENERALIZED Diagnosis 02/11/2019 [place] anxiety disorder ANXIETY DISORDER 06:00:00 [facility] F42.2 Mixed obsessional MIXED OBSESSIONAL Diagnosis 02/11/2019 [place] thoughts and acts THOUGHTS AND ACTS 06:00:00 AM [facility] EDT [facility] F17.200 Nicotine NICOTINE Diagnosis 02/11/2019 [place] dependence, DEPENDENCE, 06:00:00 AM [facility] unspecified, UNSPECIFIED, EDT Care uncomplicated UNCOMPLICATED Corporat ion F33.1 Major depressive MAJOR DEPRESSIVE Diagnosis 02/11/2019 [place] rice disorder, DISORDER, 06:00:00 AM [facility] recurrent, RECURRENT, EDT Care moderate MODERATE Corporation M45.9 Ankylosing ANKYLOSING Diagnosis 01/12/2019 [place] spondylitis of SPONDYLITIS OF 06:00:00 AM [facility] Health unspecified sites UNSPECIFIED SITES EDT Care in spine IN SPINE [employer] L40.50 Arthropathic ARTHROPATHIC Diagnosis 01/12/2019 [facility] r psoriasis, PSORIASIS, 06:00:00 AM [facility] unspecified UNSPECIFIED EDT [facility] 296.54 BIPOLAR I DISORDER Bipolar disorder, Diagnosis 03/16/2009 [facility] MOST RECENT depressed, severe 10:00:00 AM Hospi darlene EPISODE (OR w psychotic EDT CURRENT) DEPRESSED SEVERE SPECIFIED WITH PSYCHOTIC BEHAVIOR Surgeries/Procedures Procedure Description Date Indications Data Source(s) EXTRAC ERUPTED 07/30/2018 eCW2 (Open Do or TOOTH/EXPOSED ROOT 12:00:00 AM [facility]) LIMITED ORAL EVALUATION 07/28/2018 eCW2 (Open Door - PROBLEM FOCUS 12:00:[address] [facility]) INTRAORAL SINGLE PAX 07/28/2018 eCW2 (O pen Door FIRST FILM 12:00:00 AM [facility]) ADDITIONAL PA X-RAY 07/28/2018 eCW2 (Op en Door 12:00:00 AM [facility]) Dental Office Visit - 07/28/2018 eCW2 ( Open Door Routine 12:00:00 AM [facility]) Results ID Date Data Source [id number] 04/20/2020 12:00:00 AM EDT [facility] Name Value Range Interpretation Code Description Data Pauline rce(s) Supporting Document(s ) nCoV [facility] RNA XXX CARIDAD+probe- Imp This lab was ordered by [facility] and reported by [employer] ID Date Data Source [id number] 04/13/2020 12:00:00 AM EDT [facility] Name Value Range Interpretation Code Description Data Pauline rce(s) Supporting Document(s ) nCoV [facility] RNA XXX CARIDAD+probe- Imp This lab was ordered by [facility] and reported by [employer] ID Date Data Source [id number] 04/06/2020 12:00:00 AM EDT [facility] Name Value Range Interpretation Code Description Data Pauline rce(s) Supporting Document(s ) nCoV [facility] RNA XXX CARIDAD+probe- Imp This lab was ordered by [facility] and reported by [employer] ID Date Data Source [id number] 03/30/2020 12:00:00 AM EDT [facility] Name Value Range Interpretation Code Description Data Pauline rce(s) Supporting Document(s ) nCoV [facility] RNA XXX CARIDAD+probe- Imp This lab was ordered by [facility] and reported by [employer]. ID Date Data Source [id number] 03/29/2020 12:00:00 AM EDT [facility] Name Value Range Interpretation Code Description Data Pauline rce(s) Supporting Document(s ) 2019-nCoV [facility] RNA XXX CARIDAD+probe- Imp This lab was ordered by [facility] and reported by [employer] ID Date Data Source [id number] 03/24/2020 01:00:00 PM EDT [facility] Name Value Range Interpretation Description Data Sup porting Code Source(s) Document(s ) 2019 Novel [facility] Coronavirus RNA Interpretation Unspecified Specimen Qualitative CARIDAD Probe Detection This lab was ordered by [facility] and reported by [facility]. Procedure Social History Code Duration Value Status Description Data Source(s ) Smoking Unknown if ever completed Unknown if ever eCW2 (Open Door smoked smoked [facility]) Smoking Unknown if ever completed Unknown if ever eCW2 (Open Door smoked smoked [facility]) Vital Signs ID Date Data Source UNK Name Value Range Interpretation Code Description Data Source(s) Diastolic blood 57 mm[Hg] 57 mm[Hg] eCW2 (Ope n Door pressure [facility]) Systolic blood 85 mm[Hg] 85 mm[Hg] eCW2 (Open Door pressure [facility]) Diastolic blood 71 mm[Hg] 71 mm[Hg] eCW2 (Ope n Door pressure [facility]) Systolic blood 105 mm[Hg] 105 mm[Hg] eCW2 (Open Door pressure [facility]) Diastolic blood 77 mmHg 77 mmHg [facility] Systolic blood 106 mmHg 106 mmHg [facility] Respiratory rate 18 bpm 18 bpm [facility] Heart rate 81 bpm 81 bpm [facility] Diastolic blood 80 mmHg 80 mmHg [facility] Systolic blood 111 mmHg 111 mmHg [facility] Heart rate 98 bpm 98 bpm [facility] Diastolic blood 85 mmHg 85 mmHg [facility] Systolic blood 113 mmHg 113 mmHg [facility] Respiratory rate 18 bpm 18 bpm [facility] Heart rate 86 bpm 86 bpm [facility] Diastolic blood 82 mmHg 82 mmHg [facility] Systolic blood 125 mmHg 125 mmHg [facility] Heart rate 89 bpm 89 bpm [facility] Diastolic blood 83 mmHg 83 mmHg [facility] Systolic blood 118 mmHg 118 mmHg [facility] Respiratory rate 18 bpm 18 bpm [facility] Heart rate 94 bpm 94 bpm [facility] Diastolic blood 82 mmHg 82 mmHg [facility] Systolic blood 112 mmHg 112 mmHg [facility] Heart rate 86 bpm 86 bpm [facility] Diastolic blood 79 mmHg 79 mmHg [facility] Systolic blood 110 mmHg 110 mmHg [facility] Respiratory rate 18 bpm 18 bpm [facility] Heart rate 81 bpm 81 bpm [facility] Diastolic blood 86 mmHg 86 mmHg [facility] Systolic blood 112 mmHg 112 mmHg [facility] Heart rate 88 bpm 88 bpm [facility] Diastolic blood 78 mmHg 78 mmHg [facility] Systolic blood 113 mmHg 113 mmHg [facility] Respiratory rate 18 bpm 18 bpm [facility] Heart rate 82 bpm 82 bpm [facility] Diastolic blood 81 mmHg 81 mmHg [facility] Systolic blood 132 mmHg 132 mmHg [facility] Heart rate 91 bpm 91 bpm [facility] Diastolic blood 80 mmHg 80 mmHg [facility] Systolic blood 119 mmHg 119 mmHg [facility] Respiratory rate 18 bpm 18 bpm [facility] Heart rate 88 bpm 88 bpm [facility] Diastolic blood 82 mmHg 82 mmHg [facility] Systolic blood 120 mmHg 120 mmHg [facility] Heart rate 91 bpm 91 bpm [facility] Diastolic blood 79 mmHg 79 mmHg [facility] Systolic blood 112 mmHg 112 mmHg [facility] Respiratory rate 18 bpm 18 bpm [facility] Heart rate 89 bpm 89 bpm [facility] Body weight 133 lbs 133 lbs [facility] Diastolic blood 73 mmHg 73 mmHg [facility] Systolic blood 103 mmHg 103 mmHg [facility] Respiratory rate 18 bpm 18 bpm [facility] Heart rate 89 bpm 89 bpm [facility] ID Date Data Source [id number] 12/20/2019 01:44:23 PM EDT [facility] Name Value Range Interpretation Code Description Data Source(s) Body weight Measured 133 lb 133 lb [facility] ID Date Data Source [id number] 12/01/2019 11:49:43 AM EDT [facility] Name Value Range Interpretation Code Description Data Source(s) Body weight Measured 133 lb 133 lb [facility] Patient Treatment Plan of Care Planned Activity Planned Date Details Description Data Source (s) Percocet 5/325 325 mg-5 07/30/2018 12:00:00 eCW2 (Open Door mg [facility]) Ibuprofen 800 MG Oral 07/28/2018 12:00:00 eCW2 (Open Door Tablet [facility]) Amoxicillin 500 MG Oral 07/28/2018 12:00:00 eCW2 (Open Door Capsule [facility])
[2020-05-15 18:49] VITALS: BMI 25.9
--- NOTE | 2020-05-15 19:01 | BHS.RME ---
Substance Use & Tx History - Substance Use History Alcohol Substance amount: 08/13 vodka Frequency of use: Daily - Last Treatment Date of last treatment: February 2020 Where was last treatment: Detox Physical/Psych/Mental Status - Behavior General Behavior: Increased activity (restlessness, agitation) Eye Contact: Normal - Cooperativeness Cooperativeness: Cooperative - Thinking Thought Processes: Logical - Physical Health Problems Is patient presently having any pain?: No Does patient presently have any injuries (include location): Yes (left THR March 2020) Does patient currently have a fever: No CIWA Nausea/Vomitin-Int. Nausea w/Dry Heave Muscle Tremors: 2 Anxiety: 4-Mod. Anxious/Guarded Agitation: 4-Moderately Restless Paroxysmal Sweats: No Perspiration Orientation: 2-Disoriented Date<2 days Tacttile Disturbances: 0-None Auditory Disturbances: 0-None Visual Disturbances: 2-Mild Sensitivity Headache: 0-None Present CIWA-Ar Total Score: 18
--- NOTE | 2020-05-15 19:06 | HP ---
CIWA Score Nausea/Vomitin-Int. Nausea w/Dry Heave Muscle Tremors: 2 Anxiety: 4-Mod. Anxious/Guarded Agitation: 4-Moderately Restless Paroxysmal Sweats: No Perspiration Orientation: 2-Disoriented Date<2 days Tacttile Disturbances: 0-None Auditory Disturbances: 0-None Visual Disturbances: 2-Mild Sensitivity Headache: 0-None Present CIWA-Ar Total Score: 18 - Admission Criteria OASAS Guidelines: Admission for Medically Managed Detox: Requires at least one of the followin. CIWA greater than 12 2. Seizures within the past 24 hours 3. Delirium tremens within the past 24 hours 4. Hallucinations within the past 24 hours 5. Acute intervention needed for co occurring medical disorder 6. Acute intervention needed for co occurring psychiatric disorder 7. Severe withdrawal that cannot be handled at a lower level of care (continued vomiting, continued diarrhea, abnormal vital signs) requiring intravenous medication and/or fluids 8. Admitting History and Physical - Past Medical History ...LMP: 01/25/18 - Smoking History Smoking history: Current every day smoker Have you smoked in the past 12 months: Yes Aproximately how many cigarettes per day: 10 - Alcohol/Substance Use Hx Alcohol Use: Yes Admission ROS [facility] Allergies/Adverse Reactions: Allergies Allergy/AdvReac Type Severity Reaction Status Date / Time codeine Allergy Intermediate Hives Verified 05/15/20 19:52 History of Present Illness: 54 y.o. female pt requesting detox from etoh use , reports 1/2 quart vodka today , usually 1/4 , currently intoxicated KELLI 0.143 , slurred speech , reports drinking in the mornings, denies seizures , + blackouts . Bup - states started taking recreationally from family ( sister) claims 8 mg bid latest 2 days ago , denies heroin use or any opioids . rx as below , states taking as needed tobacco : 1/2 ppd PMHx : Bipolar d/o on Latuda , Trazodone , Prozac latest taken today . PSHx : lumbar fusion L5-S1 1999, left hip THR March 2020 This report was requested by: Nuha Ferrera | Reference #: [id number] Others' Prescriptions Patient Name: Jacqueline BarnettBirth Date: 1965 Address: [address] [place] [address] [id number]: Female Rx Written Rx Dispensed Drug Quantity Days Supply Prescriber Name Payment Method Dispenser 04/24/2020 04/25/2020 tramadol hcl 50 mg tablet 14 7 Ed Tierney Medicaid [facility] #[id number] 03/26/2020 04/23/2020 oxycodone hcl 5 mg tablet 30 5 Ines Orantes Medicaid [facility] #[id number] 03/26/2020 04/23/2020 pregabalin 75 mg capsule 14 14 Ines Orantes Medicaid [facility] #[id number] 03/02/2020 03/16/2020 clonazepam 0.5 mg tablet 90 30 Imelda Wells MD Insurance [facility] 01/26/2020 02/17/2020 clonazepam 0.5 mg tablet 90 30 Imelda Wells MD Insurance [facility] 01/24/2020 01/24/2020 tramadol hcl 50 mg tablet 20 5 Jj Vicente Medicaid [facility] #[id number] 01/18/2020 01/20/2020 clonazepam 0.5 mg tablet 90 30 Jared Wills MD Insurance [facility] 12/21/2019 12/22/2019 clonazepam 0.5 mg tablet 90 30 Imelda Wells MD Insurance [facility] 11/21/2019 11/25/2019 clonazepam 0.5 mg tablet 90 30 Imelda Wells MD Insurance [facility] 10/28/2019 10/28/2019 clonazepam 0.5 mg tablet 90 30 Jj Noel S Medicaid [facility] #[id number] 09/30/2019 09/30/2019 clonazepam 0.5 mg tablet 90 30 Jj Noel S [facility] 09/02/2019 09/02/2019 clonazepam 0.5 mg tablet 90 30 Jj Noel S Insurance [facility] 08/05/2019 08/05/2019 clonazepam 0.5 mg tablet 90 30 Jj Noel S [facility] 07/27/2019 07/29/2019 clonazepam 0.5 mg tablet 21 7 Jj Noel S Medicaid [facility] #[id number] 06/28/2019 06/28/2019 clonazepam 0.5 mg tablet 90 30 Jj Noel S Insurance [facility] 05/30/2019 05/30/2019 clonazepam 0.5 mg tablet 90 30 Jj Noel S Insurance [facility] Patient Name: Jacqueline BarnettBirth Date: 1965 Address: [address] [place] [id number]: Female Rx Written Rx Dispensed Drug Quantity Days Supply Prescriber Name Payment Method Dispenser 04/18/2020 04/19/2020 clonazepam 0.5 mg tablet 30 10 Vianey Asencio [employer] [facility] 04/18/2020 04/19/2020 oxycodone hcl 10 mg tablet 20 6 AsencioShantal boudreauxria F [employer] [facility] 04/13/2020 04/17/2020 oxycodone hcl 5 mg tablet 30 5 AsencioShantal boudreauxria Jeannette [employer] [facility] 04/08/2020 04/10/2020 clonazepam 0.5 mg tablet 30 10 ImmanuelSarah rocha [facility] 03/30/2020 04/03/2020 oxycodone hcl 5 mg tablet 30 5 AsencioAltagracia boudreauxa Jeannette [employer] [facility] 03/30/2020 04/01/2020 oxycodone hcl 5 mg tablet 30 3 AsencioShantal boudreauxria F [employer] [facility] 03/29/2020 03/31/2020 oxycodone hcl 5 mg tablet 30 5 David Leiva [facility] 03/29/2020 03/31/2020 clonazepam 0.5 mg tablet 30 10 David Leiva [facility] ptwas advised that she will not be receiving Oxycodone , Lyrica or Tramadol while in detox and is agreeable to it " I don' t take it anyway " Pt on Clonazepam denies abusing rx - psychiatry consult placed. Exam Limitations: Clinical Condition, Intoxication - Review of Systems Constitutional: Loss of Appetite EENT: reports: Other (reading) Respiratory: reports: No Symptoms reported Cardiac: reports: No Symptoms Reported GI: reports: Diarrhea, Nausea, Poor Appetite : reports: Other (difficulty urinating today) Musculoskeletal: reports: Joint Pain (left hip s/p THR) Integumentary: reports: Other (surgical scar left hip , l-spine) Neuro: reports: Numbness, Unsteady Gait Endocrine: reports: No Symptoms Reported Hematology: reports: No Symptoms Reported Psychiatric: reports: Agitated, Anxious, Disorientated Patient History - Patient Medical History Hx Anemia: No Hx Asthma: No Hx Chronic Obstructive Pulmonary Disease (COPD): No Hx Cancer: No Hx Cardiac Disorders: No Hx Congestive Heart Failure: No Hx Hypertension: No Hx Hypercholesterolemia: No Hx Pacemaker: No HX Cerebrovascular Accident: No Hx Seizures: No Hx Dementia: No Hx Diabetes: No Hx Gastrointestinal Disorders: No Hx Liver Disease: No Hx Genitourinary Disorders: No Hx Sexually Transmitted Disorders: No Hx Renal Disease (ESRD): No Hx Thyroid Disease: No Hx Human Immunodeficiency Virus (HIV): No (last 2016 negative) Hx Hepatitis C: No Hx Depression: Yes Hx Suicide Attempt: No Hx Bipolar Disorder: Yes (hospitalized [facility] june 2017, on [facility]) Hx Schizophrenia: No - Patient Surgical History Past Surgical History: Yes Hx Neurologic Surgery: No Hx Cataract Extraction: No Hx Cardiac Surgery: No Hx Lung Surgery: No Hx Breast Surgery: Yes (bilateral breast augmentation in 2005) Hx Breast Biopsy: No Hx Abdominal Surgery: No Hx Appendectomy: No Hx Cholecystectomy: No Hx Genitourinary Surgery: No Hx Section: No Hx Orthopedic Surgery: Yes (lower back in 1999 - fusion) Anesthesia Reaction: No - PPD History Date: 03/08/18 Results: 0 mm - Reproductive History Last Menstrual Period: 01/25/18 - Smoking Cessation Smoking history: Current every day smoker Have you smoked in the past 12 months: Yes Aproximately how many cigarettes per day: 10 Cigars Per Day: 0 Hx Chewing Tobacco Use: No Initiated information on smoking cessation: Yes 'Breaking Loose' booklet given: 05/15/20 Admission Physical Exam [facility] - Vital Signs Vital Signs: Vital Signs - 24 hr 05/15/20 18:48 Temperature 98.0 F Pulse Rate 111 H Respiratory 19 Rate Blood Pressure 126/80 - Physical General Appearance: Yes: Disheveled, Moderate Distress, Intoxicated, Tremorous, Sweating, Anxious HEENTM: Yes: EOMI, Hearing grossly Normal, Normocephalic, Normal Voice Respiratory: Yes: Chest Non-Tender, Lungs Clear, Normal Breath Sounds, No Respiratory Distress, No Accessory Muscle Use Neck: Yes: No masses,lesions,Nodules, Trachea in good position Cardiology: Yes: Regular Rhythm, Regular Rate, S1, S2, Tachycardia Abdominal: Yes: Non Tender, Soft Musculoskeletal: Yes: Joint Stiffness (left hip), Other (unsteady gait - ambulating using cane) Extremities: Yes: Other (flexion left hip surgical scar , decreased) Neurological: Yes: Alert, Motor Strength 5/5, Disoriented Integumentary: Yes: Warm, Other ( superficial excoriation bilateral knees, admits to fall while intoxicated) - Diagnostic (1) Alcohol intoxication Current Visit: Yes Status: Acute Qualifiers: Complication of substance-induced condition: uncomplicated Qualified Code(s): F10.920 - Alcohol use, unspecified with intoxication, uncomplicated Breathalyzer - Breathalyzer Breathalyzer: 0.143 Urine Drug Screen - Test Device Lot number: [id number] Expiration date: 09/09/20 - Control Is test valid?: Yes - Results Drug screen NEGATIVE: No Urine drug screen results: BZO-Benzodiazepines Inpatient Rehab Admission - Rehab Decision to Admit Inpatient rehab admission?: No
[2020-05-15] MEDS ORDERED: MAGNESIUM HYDROX 2400MG/30ML ORAL SUSPENSION 30 ML CUP PO PRN (19:28)
[2020-05-15] MEDS ORDERED: NICOTINE POLACRILEX 2 MG GUM BUC PRN (19:28)
[2020-05-15] MEDS ORDERED: ONDANSETRON *ODT* 4 MG TABLET SL PRN (19:28)
[2020-05-15] MEDS ORDERED: MAGNESIUM CITRATE 300 ML BOTTLE PO PRN (19:28)
[2020-05-15] MEDS ORDERED: ACETAMINOPHEN 325 MG TABLET (FP) PO PRN (19:28)
[2020-05-15] MEDS ORDERED: MENTHOL/PHENOL 1 EACH UD MM PRN (19:28)
[2020-05-15] MEDS ORDERED: MAG HYDROX/AL HYDROX/SIMETH 30 ML UNIT-DOSE CUP PO PRN (19:28)
[2020-05-15] MEDS ORDERED: hydrOXYzine PAMOATE 25 MG CAPSULE (FP) PO PRN (19:28)
[2020-05-15] MEDS ORDERED: METOPROLOL TARTRATE 25 MG TABLET (FP) PO ONE (19:30)
--- OUTSIDE RECORDS SUMMARY | 2020-05-15 19:33 | XMS ---
:1965 Author Organization [facility] Care Team Providers Name Role Phone ABEBA NEENA Unavailable Unavailable CELESTE XAVIER Unavailable Unavailable DESMOND OKEEFE Unavailable Unavail able [id number], [id number] Unavailable Unavailable SCOTT CLANCY Unavailable Unavailable LOI [...] is protected by Article 27-F of the [place] State Public Health law. If you continue you may haveaccess to information: Regarding HIV / AIDS; Provided by facilities licensed or operated by the [facility] Office of Mental Health; or Provided by the [facility] Office for People With Developmental Disabilities. If such information is present, then the following [facility] mandated warning applies: This information has [...] law may result in a fine or fci sentence or both. A general authorization for the release of medical or other information is NOT sufficient authorization for further disclosure. Allergies and Adverse Reactions Type Description Substance Reaction Status Data Source(s ) codine codine codine rash Active eCW2 ([facility]) codine codine codine rash Active eCW2 ([facility]) Encounters Encounter Providers Location Date Indications Data Source(s ) Outpatient Attender: LIVE CALVILLO 11/15/2019 [facility] SARAHAdmitter: 09:06:00 AM Hos bony GODFREY EDT Attender: 09/30/2019 [facility] [id number] 10:54:00 AM Hos bony [id number] [facility]_6766 Outpatient Attender: [id number] 09/27/2019 [facility] 01:54:04 PM [facility]) EST Patient admitted. Outpatient Attender: DESMOND Plunkett 06/29/2019 12:15: 00 [facility] RENATOERAdmitter: PM EST [facility] DESMOND COOPEReferrer: DESMOND LOGAN Outpatient Attender: DESMOND CALVILLO 03/31/2019 10:01:00 [facility] SHEIKHdmitter: SCOTT CLANCY AM EDT - 11/25/2019 [facility] 11:49:00 AM EDT Patient discharged. Attender: 03/31/2019 Jam[facility] [id number] 10:01:00 AM EDT [facility]_6766 Outpatient Attender: LOI Payneder: STCrow 9 [facility] Jamil CELESTE [facility]: CELESTE 10:17:00 AM EDT - [facility] 03/30/2019 03:30:00 PM EDT Patient discharged. Attender: 03/29/2019 [facility] [id number] 10:17:[address] [facility]_6766 [facility] Outpatient Attender: Tristan Rudolph 03/18/2019 [facility] MDAdmitter: Tristan Rudolph MD 06:00:00 AM [facility] Outpatient Attender: Tristan Rudolph 02/11/2019 [place] MDAdmitter: Tristan Rudolph MD 06:00:00 AM [facility] Outpatient Attender: Tristan Rudolph 02/09/2019 [facility] MDAdmitter: Tristan Rudolph MD 06:00:00 AM [facility] Outpatient Attender: Tristan Rudolph 01/12/2019 [facility] MDAdmitter: Tristan Rudolph MD 06:00:00 AM [facility] Outpatient Attender: Tristan Rudolph 12/13/2018 [facility] MDAdmitter: Tristan Rudolph MD 06:00:00 AM [facility] Outpatient 12/10/2018 [facility] (Srinivasan 02:09:01 PM [facility]) Outpatient Attender: NEENA USAdmitter: 11/12/2018 [place] NEENA US 06:00:00 AM [facility] 09/03/2018 eCW2 (Open [facility] Open Door 12:00:00 AM [facility]) [facility] 07/30/2018 eCW2 (Open Open Door Open Door 12:00:00 AM [facility]) [facility] 07/28/2018 eCW2 (Open Open Door Open Door 12:00:00 AM [facility]) Attender: 05/03/2018 [place] [id number] 10:15:[address] [facility]_6766 [facility] Hospital Attender: 04/30/2018 [facility] [id number] 10:13:[address] Attender: 07/10/2017 [facility] [id number] 03:50:[address] Attender: 07/10/2017 [facility] [id number] 10:27:[address] [facility] 08/16/2015 eCW2 (Open Open Door Open Door 12:00:00 AM [facility]) [facility] 05/03/2014 eCW2 (Open Open Door Open Door 12:00:00 AM Door [facility]) [facility] 05/03/2014 eCW2 (Open Open Door Open Door 12:00:00 AM Door [facility]) [facility] 04/29/2014 eCW2 (Open Open Door Open Door 12:00:00 AM Door [facility]) [facility] 04/29/2014 eCW2 (Open Open Door Open Door 12:00:00 AM Door [facility]) [place] [facility] 10/20/2013 eCW2 (Open Door Open Door 12:00:00 AM Door [facility]) [facility] 08/31/2013 eCW2 (Open Open Door Open Door 12:00:00 AM [facility]) [facility] 05/10/2013 eCW2 (Open Open Door Open Door 12:00:00 AM Door [facility]) [facility] 04/15/2013 eCW2 (Open Open Door Open Door 12:00:00 AM Door [facility]) [facility] 03/19/2013 eCW2 (Open Open Door Open Door 12:00:00 AM Door [facility]) [facility] 03/15/2013 eCW2 (Open Open Door Open Door 12:00:00 AM Door [facility]) [facility] 02/22/2013 eCW2 (Open Open Door Open Door 12:00:00 AM Door [facility]) [facility] 02/02/2013 eCW2 (Open Open Door Open Door 12:00:00 AM Door [facility]) [facility] 02/02/2013 eCW2 (Open Open Door Open Door 12:00:00 AM Door [facility]) [facility] 01/26/2013 eCW2 (Open Open Door Open Door 12:00:00 AM Door [facility]) [facility] 01/18/2013 eCW2 (Open Open Door Open Door 12:00:00 AM Door [facility]) [facility] 01/18/2013 eCW2 (Open Open Door Open Door 12:00:00 AM Door [facility]) Attender: 11/30/2012 [facility] [id number] 01:45:[address] 09/09/2012 eCW2 (Open Open Door Open Door 12:00:00 AM Door [facility]) [place] [facility] [place] 08/16/2012 eCW2 (Open Door Open Door 12:00:00 AM Door [facility]) Attender: 07/23/2012 [facility] [id number] 03:11:[address] Attender: 07/22/2012 [facility] [id number] 04:08:[address] Open [place] 07/09/2012 eCW2 (Open Door Open Door 12:00:00 AM Door [facility]) [facility] 02/09/2012 eCW2 (Open Open Door Open Door 12:00:00 AM Door [facility]) [facility] 11/14/2011 eCW2 (Open Open Door Open Door 12:00:00 AM Door [facility]) [facility] 04/04/2011 eCW2 (Open Open Door Open Door 12:00:00 AM Door [facility]) Attender: 03/06/2011 [facility] [id number] 11:05:[address] [facility]_6766 T Hospital Attender: 03/03/2011 [facility] [id number] 06:40:00 PM [facility] T Hospital Attender: 09/19/2009 [place] [id number] 12:28:00 PM [facility] Hospital Attender: 03/07/2009 [place] [id number] 08:12:00 PM [place] [id number] T Hospital Attender: 06/14/1997 [place] [id number] 11:00:00 AM [facility] Hospital Attender: 06/14/1997 [place] [id number] 09:00:00 AM [facility] Hospital Attender: [place] [id number] [place] [id number] [facility] Immunizations Vaccine Date Status Description Data Source(s) No Known Immunizations completed eCW2 ([facility]) No Known Immunizations completed eCW2 ([facility]) Medications Medication Brand Start Product Dose Route Administrative Pharmacy [employer] [facility] Indications Reaction Description Data Name Date Form Instructions Instructions Source(s) Naltrexone Naltre ORAL complet Naltrex one [facility] xone 2019 Table ed HCl - 50 MG [facility] 50 MG HCl - 12:00: t ORAL Tablet H ospital Oral Tablet 50 MG 00 AM ORAL EDT Tablet buspirone busPIR ORAL complet busPIRon e [facility] 2019 Table ed HCl - 15 MG [facility] 15 MG HCl - 12:00: t ORAL Tablet H ospital Oral Tablet 15 MG 00 AM ORAL EDT Tablet Trazodone traZOD ORAL complet traZODon e [facility] 2019 Table ed hydrochlorid [facility] 100 MG hydroc 12:00: t e - 100 MG Hospital Oral Tablet hlorid 00 AM ORAL Table t e - EDT 100 MG ORAL Tablet Lurasidone Latuda ORAL complet Latuda - 60 [facility] Hydrochlori - 60 2019 Table ed MG [...] Lurasidone Latuda ORAL complet Latuda - 60 [facility] 60 2019 Table ed MG ORAL [facility] 60 MG MG 12:00: t Tablet Hospita l Oral Tablet ORAL 00 AM [Latuda] Tablet EDT Clonazepam clonaz ORAL complet clonaze SAUL - [facility] 0.5 MG Oral ePA 2019 Table ed 0.5 MG ORA L [...] 24 HR Nicoti TRANSD complet Nicotine - [facility] Nicotine ne 2019 Patch ERMAL ed 21 MG/24 HR Vi ncents 0.875 MG/HR 21 12:00: TRANSDERMAL Hospital Transdermal MG/ AM Patch, Patch HR EDT Extended TRANSD Release ERMAL Patch, Extend ed Releas e buspirone busPIR ORAL complet busPIRon e [facility] hydrochlori one 2019 Table ed HCl - [...] Lurasidone Latuda ORAL complet Latuda - 60 [facility] Hydrochlori - 60 2019 Table ed MG ORAL [facility] 60 MG MG 12:00: t Tablet Hospita l Oral Tablet ORAL 00 AM [Latuda] Tablet EDT buspirone busPIR ORAL complet busPIRon e [facility] hydrochlori one 2019 Table ed HCl - 15 MG [facility] 15 MG HCl - 12:00: t ORAL Tablet H ospital Oral Tablet 15 MG 00 AM ORAL EDT Tablet Trazodone traZOD OR[facility] Table ed hydrochlorid [facility] [...] Lurasidone Latuda ORAL complet Latuda - 60 [facility] Hydrochlori - 60 2019 Table ed MG ORAL [facility] 60 MG MG 12:00: t Tablet Hospita l Oral Tablet ORAL 00 AM [Latuda] Tablet EDT Trazodone traZOD ORAL complet traZODon e [facility] Hydrochlori one 2019 Table ed hydrochlorid [facility] 100 MG hydroc 12:00: t e - 100 MG Hospital Oral Tablet hlorid 00 AM ORAL Table t e - EDT 100 MG ORAL Tablet buspirone busPIR ORAL complet busPIRon e [facility] hydrochlori one 2019 Table ed HCl - 15 MG [facility] 15 MG HCl - 12:00: t ORAL Tablet H ospital Oral Tablet 15 MG 00 AM ORAL EDT Tablet Lurasidone Latuda ORAL complet Latuda - 60 [facility] Hydrochlori - 60 2019 Table ed MG ORAL [facility] 60 MG MG 12:00: t Tablet Hospita l Oral Tablet ORAL 00 AM [Latuda] Tablet EDT buspirone busPIR ORAL complet busPIRon e [facility] hydrochlori one 2019 Table ed HCl - [...] e Trazodone traZOD ORAL complet traZODon e [facility] Hydrochlori one 2019 Table ed hydrochlorid [facility] 100 MG hydroc 12:00: t e - 100 MG Hospital Oral Tablet hlorid 00 AM ORAL Table t e - EDT 100 MG ORAL Tablet 24 HR Nicoti TRANSD complet Nicotine - [facility] Nicotine 2019 Patch ERMAL ed 21 MG/24 [...] SAUL - [facility] 0.5 MG Oral ePA - 2019 Table ed 0.5 MG ORA L [facility] Tablet 0.5 MG 12:00: t Tablet Hospita l ORAL 00 AM Tablet EST Trazodone traZOD ORAL complet traZODon e [facility] Hydrochlori one 2019 Table ed hydrochlorid [facility] 100 MG hydroc 12:00: t e - 100 MG Hospital Oral Tablet hlorid 00 AM ORAL Table t e - EST 100 MG ORAL Tablet Lurasidone Latuda ORAL complet Latuda - 60 [facility] Hydrochlori - 60 2019 Table ed MG ORAL [facility] 60 MG MG 12:00: t Tablet Hospita l Oral Tablet ORAL 00 AM [Latuda] Tablet EST buspirone busPIR [facility] Table ed HCl - 15 [...] EST 100 MG ORAL Tablet Naltrexone Vivitr 01/24/ 1 INTRAM complet Vivit rol - [facility] 112 MG/ML ol - 2019 Appli USCULA ed 380 MG Moose [...] Lurasidone Latuda ORAL complet Latuda - 60 [facility] Hydrochlori - 60 2019 Table ed MG [...] Lurasidone Latuda ORAL complet Latuda - 60 [facility] 2018 Table ed MG ORAL Vinc [...] Naltrexone Revia ORAL complet Revia - 50 [facility] hydrochlori 50 2018 Table ed MG ORAL Vinc [...] e buspirone busPIR ORAL [facility] Table ed HCl - 15 MG [facility] 15 MG HCl - 12:00: t ORAL Tablet H ospital Oral Tablet 15 MG 00 AM ORAL EST Tablet Trazodone traZOD ORAL complet traZODon e [facility] Table ed hydrochlorid [facility] 100 MG hydroc 12:00: t e - 100 MG Hospital Oral Tablet hlorid 00 AM ORAL Table t e - EST 100 MG ORAL Tablet Clonazepam clonaz ORAL complet clonaze SAUL - [facility] 0.5 MG Oral [facility]2018 Table ed 0.5 MG ORA L [facility] Tablet 0.5 MG 12:00: t Tablet Hospita l ORAL 00 AM Tablet EST Lurasidone Latuda ORAL complet Latuda - 60 [facility] Table ed MG ORAL [facility] 60 MG MG 12:00: t Tablet Hospita l Oral Tablet ORAL 00 AM [Latuda] Tablet EST buspirone busPIR ORAL complet busPIRon e [facility] 2018 Table ed HCl - 15 MG [facility] 15 MG HCl - 12:00: t ORAL Tablet H ospital Oral Tablet 15 MG 00 AM ORAL EST Tablet Lurasidone Latuda ORAL complet Latuda - 60 [facility] Table ed MG ORAL [facility] [...] e Trazodone traZOD ORAL complet [facility]on e [facility] Table ed hydrochlorid [facility] 100 [...] EDT buspirone busPIR ORAL complet busPIRon e [facility] hydrochlori 2018 Table ed HCl - 15 [...] EDT Trazodone traZOD ORAL complet traZODon e Hydrochlori one 2018 Table ed hydrochlorid [facility] [...] e buspirone busPIR ORAL complet busPIRon e [facility] hydrochlori one 2018 Table ed HCl - [...] clonaze SAUL - [facility] 0.5 MG Oral [facility]2018 Table ed 0.5 MG ORA L [facility] Tablet 0.5 MG 12:00: t Tablet Hospita l ORAL 00 AM Tablet EDT Naltrexone Revia ORAL complet Revia - 50 [facility] 50 2018 Table ed MG ORAL [facility] 50 MG MG 12:00: t Tablet Hospita l Oral Tablet ORAL 00 AM [ReVia] Tablet EDT Lurasidone Latuda ORAL complet Latuda - 60 [facility] 60 2018 Table ed MG ORAL [facility] 60 MG MG 12:00: t Tablet Hospita l Oral Tablet ORAL 00 AM [Latuda] Tablet EDT Naltrexone Vivitr INTRAM complet Vivit rol - [facility] 112 MG/ML - 2018 Appli USCULA ed 380 MG Moose nts Injectable 380 MG 12:00: catio [facility] Hospital Suspension INTRAM 00 AM n R Powder fo r [Vivitrol] USCULA EDT Suspension, R Extended Powder Release for Suspen diane, Extend ed Releas e Lurasidone Latuda ORAL complet Latuda - 60 [facility] Table ed MG ORAL [facility] 60 MG MG 12:00: t Tablet Hospita l Oral Tablet ORAL 00 AM [Latuda] Tablet EDT Clonazepam clonaz ORAL complet clonaze SAUL - [facility] 0.25 MG [facility] 2018 Table ed 0.25 MG ORAL [...] ORAL EDT Capsul e Percocet Percoc 07/30/ active 1 tab(s) e CW2 (Open 5/325 325 [...] eCW2 (Open 800 MG Oral fen 2018 ed Door Tablet 800 mg 12:00: Family [...] 07/14/ ORAL complet Darci nt Hydrochlori one 2017 ed [facility] 50 MG hydroc 12:00: Hospita l Oral Tablet hlorid 00 AM e - 50 EST MG ORAL Tablet Fluoxetine Prozac suspend 3 cap(s) eCW2 (Open 20 MG Oral 20 mg ed Door Capsule [facility] [Prozac] [facility] Prozac 20 [place]) mg fentanyl 25 UNK suspend 1 PATCH eC W2 (Open mcg/hr ed Door [facility]) 0.8 ML Humira active 0 eCW2 (Ope [...] 20 MG Oral 20 mg Door Capsule [facility] [Prozac] [facility] Prozac 20 [place]) mg Trazodone trazod active 1 tab(s) eC W2 (Open Hydrochlori one Door de 100 MG 100 mg [facility] Oral Tablet Medical trazodone [place]) 100 mg fentanyl 25 UNK suspend 1 PATCH eC W2 (Open mcg/hr ed Door [facility]) Trazodone trazod active 1 tab(s) eC W2 (Open Hydrochlori one Door de 100 MG 100 mg Family Oral Tablet Medical trazodone [place]) 100 mg Insurance Providers Payer name Policy type Policy ID Covered Covered alliance party's Policy P josie / Coverage alliance party ID relationship to [employer] ormation type goss MVP [place] [id number] [place] [id number] HMO MVP MEDICAID [id number] SP [id number] HMO SELF PAY [id number] Self [id number] MEDICAID OP [id number] Self [id number] [facility] MVP [id number] Self [id number] 200 HARMONIOUS [facility] MVP [id number] Self [id number] 200 HARMONIOUS HEALTHCARE [facility] MVP [id number] Self [id number] 200 HARMONIOUS SELF PAY 0000 Self 0000 MEDICAID OP [id number] Self [id number] [facility] MVP [id number] Self [id number] 200 HARMONIOUS HEALTHCARE O MVP/HHP O [id number] 01 [id number] 200 [facility] MVP [id number] Self [id number] 200 HARMONIOUS HEALTHCARE SELF PAY 000 Self 000 MEDICAID OP [id number] Self [id number] [facility] MVP [id number] Self [id number] 200 [employer] [place] [id number] SP [id number] 200 HEALTH-MVP [place] [id number] SP [id number] 200 HEALTH-MVP [facility] [employer] [id number] SP [id number] NON CAP Problems, Conditions, and Diagnoses Code Display Name Description Problem Type Effective Data Sour ce(s) Dates [id number] Personality Personality Complaint 07/10/2017 [facility] ts disorder disorder 12:00:00 PM Hospital (disorder) EST 45078036 Cocaine abuse Cocaine abuse Complaint 07/10/2017 [facility] ncents (disorder) 12:00:00 PM Hospital EST [id number] Alcohol abuse Alcohol abuse Complaint 07/10/2017 [facility] ncents (disorder) 12:00:00 PM Hospital EST 60239249 Generalized Generalized Complaint 07/10/2017 [facility] hernandez anxiety disorder anxiety disorder 12:00:00 PM H ospital (disorder) EST 84087615 Recurrent major Recurrent major Complaint 07/10/2017 Tiffani Negron depression depression 12:00:00 PM Hospital (disorder) EST 99915448 Personality Personality Complaint 07/10/2017 [facility] [place] hernandez disorder disorder 12:00:00 PM Hospital (disorder) EST [id number] Cocaine abuse Cocaine abuse Complaint 07/10/2017 [facility] [place] (disorder) 12:00:00 PM Hospital EST 78942198 Alcohol abuse Alcohol abuse Complaint 07/10/2017 [facility] nctoy (disorder) 12:00:00 PM Hospital EST [id number] Generalized Generalized Complaint 07/10/2017 [facility] hernandez anxiety disorder anxiety disorder 12:00:00 PM H ospital (disorder) EST 80114838 Recurrent major Recurrent major Complaint 07/10/2017 Tiffanianastasiia Negron depression depression 12:00:00 PM Hospital (disorder) EST 780.79 Fatigue Fatigue Problem 03/15/2013 eCW2 (Open Doo r 12:00:00 AM [facility] EDT Center) 728.87 Weakness of Weakness of Problem 03/15/2013 eCW2 (Open D oor muscles muscles 12:00:00 AM [facility] EDT Center) 304.90 Polysubstance Polysubstance Problem 02/02/2013 eCW2 (Op en Door dependence dependence 12:00:00 AM [facility] EDT Center) 296.50 Bipolar affective Bipolar affective Problem 01/26/2013 eCW2 (Open Door disorder, disorder, 12:00:00 AM [facility] depressed depressed EDT Center) 296.30 Depression, major Depression, major Problem 02/09/2012 eCW2 (Open Door - recurrent NOS - recurrent NOS 12:00:00 AM [facility] EDT Center) 599.0 UTI [Urinary tract UTI [Urinary Problem 11/14/2011 eCW2 (Open Door infection] tract infection] 12:00:00 AM [facility] EDT Center) 305.1 Tobacco use Tobacco use Problem 11/14/2011 eCW2 (Open D oor 12:00:00 AM [facility] EDT Center) 616.10 Vaginitis Vaginitis Problem 11/14/2011 eCW2 (Open Doo r 12:00:00 AM [facility] EDT Center) [id number] Bipolar II Bipolar II Complaint 08/10/2009 [facility] Negron disorder disorder 12:00:00 PM Hospital (disorder) EST 28015053 Posttraumatic Posttraumatic Complaint 08/10/1999 [facility] Vi ncents stress disorder stress disorder 12:00:00 PM Hos pital (disorder) EST F32.9 Major depressive MAJOR DEPRESSIVE Diagnosis 06/29/2019 Sa int Otny disorder, single DISORDER, SINGLE 12:15:00 PM [facility] episode, EPISODE, EST unspecified UNSPECIFIED F41.9 Anxiety disorder, ANXIETY DISORDER, Diagnosis 06/29/2019 [facility] unspecified UNSPECIFIED 12:15:[address] EST F17.200 Nicotine NICOTINE Diagnosis 06/29/2019 [facility] dependence, DEPENDENCE, 12:15:[address] unspecified, UNSPECIFIED, EST uncomplicated UNCOMPLICATED F11.20 Opioid dependence, OPIOID Diagnosis 06/29/2019 [facility] uncomplicated DEPENDENCE, 12:15:00 PM Medical C enter UNCOMPLICATED EST F10.20 Alcohol ALCOHOL Diagnosis 06/29/2019 [place] dependence, DEPENDENCE, 12:15:[address] uncomplicated UNCOMPLICATED EST M79.7 Fibromyalgia FIBROMYALGIA Diagnosis 02/11/2019 Prote r 06:00:00 AM [facility] EDT Care [facility] L40.59 Other psoriatic OTHER PSORIATIC Diagnosis 02/11/2019 [place] arthropathy ARTHROPATHY 06:00:00 AM [facility] EDT [employer] F41.1 Generalized GENERALIZED Diagnosis 02/11/2019 [place] anxiety disorder ANXIETY DISORDER 06:00:00 AM [facility] EDT [employer] F42.2 Mixed obsessional MIXED OBSESSIONAL Diagnosis 02/11/2019 [place] thoughts and acts THOUGHTS AND ACTS 06:00:00 AM Critical access hospitalT Care [facility] F17.200 Nicotine NICOTINE Diagnosis 02/11/2019 [place] dependence, DEPENDENCE, 06:00:00 AM [facility] unspecified, UNSPECIFIED, EDT Care uncomplicated UNCOMPLICATED Corporat ion F33.1 Major depressive MAJOR DEPRESSIVE Diagnosis 02/11/2019 Samuel stoscar disorder, DISORDER, 06:00:00 AM [facility] recurrent, RECURRENT, EDT Care moderate [employer] M45.9 Ankylosing ANKYLOSING Diagnosis 01/12/2019 [place] spondylitis of SPONDYLITIS OF 06:00:00 AM [facility] unspecified sites UNSPECIFIED SITES EDT Care in spine IN [employer] L40.50 Arthropathic ARTHROPATHIC Diagnosis 01/12/2019 Ge r psoriasis, PSORIASIS, 06:00:00 AM [facility] unspecified UNSPECIFIED EDT [facility] [employer] 296.54 BIPOLAR I DISORDER Bipolar disorder, Diagnosis 03/16/2009 [facility]on MOST RECENT depressed, severe 10:00:00 AM Hospi darlene EPISODE (OR w psychotic EDT CURRENT) DEPRESSED SEVERE SPECIFIED WITH PSYCHOTIC BEHAVIOR Surgeries/Procedures Procedure Description Date Indications Data Source(s) EXTRAC ERUPTED 07/30/2018 eCW2 (Open Do or TOOTH/EXPOSED ROOT 12:00:00 AM [facility]) LIMITED ORAL EVALUATION 07/28/2018 eCW2 (Open Door - PROBLEM FOCUS 12:00:00 AM [facility] INTRAORAL SINGLE PAX 07/28/2018 eCW2 (O pen Door FIRST FILM 12:00:00 AM [facility]) ADDITIONAL PA X-RAY 07/28/2018 eCW2 (Op en Door 12:00:00 AM [facility]) Dental Office Visit - 07/28/2018 eCW2 ( Open Door Routine 12:00:00 AM [facility]) Results ID Date Data Source [id number] 04/20/2020 12:00:00 AM EDT [facility] Name Value Range Interpretation Code Description Data Pauline rce(s) Supporting Document(s ) 2018-nCoV [facility] RNA XXX CARIDAD+probe- Imp This lab was ordered by [facility]- RESIDENTS and reported by [employer] ID Date Data Source [id number] 04/13/2020 12:00:00 AM EDT [facility] Name Value Range Interpretation Code Description Data Pauline rce(s) Supporting Document(s ) nCoV [facility] RNA XXX CARIDAD+probe- Imp This lab was ordered by [facility] RESIDENTS and reported by [employer] ID Date Data Source [id number] 04/06/2020 12:00:00 AM EDT [facility] Name Value Range Interpretation Code Description Data Pauline rce(s) Supporting Document(s ) nCoV [facility] RNA XXX CARIDAD+probe- Imp This lab was ordered by [facility]- RESIDENTS and reported by [employer] ID Date Data Source [id number] 03/30/2020 12:00:00 AM EDT [facility] Name Value Range Interpretation Code Description Data Pauline rce(s) Supporting Document(s ) 2019-nCoV [facility] RNA XXX CARIDAD+probe- Imp This lab was ordered by [facility]- RESIDENTS and reported by [employer]. ID Date Data Source [id number] 03/29/2020 12:00:00 AM EDT [facility] Name Value Range Interpretation Code Description Data Pauline rce(s) Supporting Document(s ) 2019-nCoV [facility] RNA XXX CARIDAD+probe- Imp This lab was ordered by [facility] RESIDENTS and reported by [employer]. ID Date Data Source [id number] 03/24/2020 01:00:00 PM EDT [facility] Name Value Range Interpretation Description Data Sup porting Code Source(s) Document(s ) [address] [facility] Coronavirus RNA Interpretation Unspecified Specimen Qualitative CARIDAD Probe Detection This lab was ordered by [facility] and reported by [facility]. Procedure Social History Code Duration Value Status Description Data Source(s ) Smoking Unknown if ever completed Unknown if ever eCW2 ([facility] smoked smoked [facility]) Smoking Unknown if ever completed Unknown if ever eCW2 ([facility] smoked smoked [facility]) Vital Signs ID Date Data Source UNK Name Value Range Interpretation Code Description Data Source(s) Diastolic blood 57 mm[Hg] 57 mm[Hg] eCW2 ([facility] pressure [facility]) Systolic blood 85 mm[Hg] 85 mm[Hg] eCW2 ([facility] pressure [facility]) Diastolic blood 71 mm[Hg] 71 mm[Hg] eCW2 ([facility] pressure [facility]) Systolic blood 105 mm[Hg] 105 mm[Hg] eCW2 ([facility] pressure [facility]) Diastolic blood 77 mmHg 77 mmHg [facility] Systolic blood 106 mmHg 106 mmHg [facility] Respiratory rate 18 bpm 18 bpm [facility] Heart rate 81 bpm 81 bpm [facility] Diastolic blood 80 mmHg 80 mmHg [facility] Systolic blood 111 mmHg 111 mmHg [facility] Heart rate 98 bpm 98 bpm [facility] Diastolic blood 85 mmHg 85 mmHg [facility] Systolic blood 113 mmHg 113 mmHg [facility] Respiratory rate 18 bpm 18 bpm [facility] Heart rate 86 bpm 86 bpm [facility] Diastolic blood 82 mmHg 82 mmHg [facility] Systolic blood 125 mmHg 125 mmHg [facility] Heart rate 89 bpm 89 bpm [facility] Diastolic blood 83 mmHg 83 mmHg [facility] Systolic blood 118 mmHg 118 mmHg [facility] Respiratory rate 18 bpm 18 bpm [facility] Heart rate 94 bpm 94 bpm [facility] Diastolic blood 82 mmHg 82 mmHg [facility] Systolic blood 112 mmHg 112 mmHg [facility] Heart rate 86 bpm 86 bpm [facility] Diastolic blood 79 mmHg 79 mmHg [facility] Systolic blood 110 mmHg 110 mmHg [facility] Respiratory rate 18 bpm 18 bpm [facility] Heart rate 81 bpm 81 bpm [facility] Diastolic blood 86 mmHg 86 mmHg [facility] Systolic blood 112 mmHg 112 mmHg [facility] Heart rate 88 bpm 88 bpm [facility] Diastolic blood 78 mmHg 78 mmHg [facility] Systolic blood 113 mmHg 113 mmHg [facility] Respiratory rate 18 bpm 18 bpm [facility] Heart rate 82 bpm 82 bpm [facility] Diastolic blood 81 mmHg 81 mmHg [facility] Systolic blood 132 mmHg 132 mmHg [facility] Heart rate 91 bpm 91 bpm [facility] Diastolic blood 80 mmHg 80 mmHg [facility] Systolic blood 119 mmHg 119 mmHg [facility] Respiratory rate 18 bpm 18 bpm [facility] Heart rate 88 bpm 88 bpm [facility] Diastolic blood 82 mmHg 82 mmHg [facility] Systolic blood 120 mmHg 120 mmHg [facility] Heart rate 91 bpm 91 bpm [facility] Diastolic blood 79 mmHg 79 mmHg [facility] Systolic blood 112 mmHg 112 mmHg [facility] Respiratory rate 18 bpm 18 bpm [facility] Heart rate 89 bpm 89 bpm [facility] Body weight 133 lbs 133 lbs [facility] Diastolic blood 73 mmHg 73 mmHg [facility] Systolic blood 103 mmHg 103 mmHg [facility] Respiratory rate 18 bpm 18 bpm [facility] Heart rate 89 bpm 89 bpm [facility] ID Date Data Source [id number] 12/20/2019 01:44:23 PM EDT [facility] Name Value Range Interpretation Code Description Data Source(s) Body weight Measured 133 lb 133 lb [facility] ID Date Data Source [id number] 12/01/2019 11:49:43 AM EDT [facility] Name Value Range Interpretation Code Description Data Source(s) Body weight Measured 133 lb 133 lb [facility] Patient Treatment Plan of Care Planned Activity Planned Date Details Description Data Source (s) Percocet 5/325 325 mg-5 07/30/2018 12:00:00 eCW2 ([facility] mg [facility]) Ibuprofen 800 MG Oral 07/28/2018 12:00:00 eCW2 ([facility] Tablet [facility]) Amoxicillin 500 MG Oral 07/28/2018 12:00:00 eCW2 ([facility] Capsule [facility])
[2020-05-15] MEDS ORDERED: chlordiazePOXIDE HCL 25 MG CAPSULE PO ONE (19:45)
[2020-05-15] MEDS ORDERED: chlordiazePOXIDE HCL 25 MG CAPSULE ONE (20:02)
[2020-05-15] MEDS: chlordiazePOXIDE HCL 25 MG CAPSULE PO PRN (20:58)
[2020-05-15] MEDS: THIAMINE HCL 100 MG TABLET (FP) PO SCH (22:10)
[2020-05-15] MEDS: chlordiazePOXIDE HCL 25 MG CAPSULE PO SCH (22:10)
[2020-05-15] MEDS: MELATONIN 5 MG TABLETS PO PRN (22:11)
[2020-05-16] MEDS: chlordiazePOXIDE HCL 25 MG CAPSULE PO PRN ×2 (01:18→12:50)
[2020-05-16] MEDS: chlordiazePOXIDE HCL 25 MG CAPSULE PO SCH ×4 (06:08→22:14)
[2020-05-16] MEDS: BISMUTH SUBSALICYLATE 524 MG/30 ML UD PO PRN ×2 (08:27→11:02)
[2020-05-16] MEDS: NICOTINE 7 MG/24 HOURS TOPICAL PATCH TD SCH (10:09)
[2020-05-16] MEDS: PRENATAL VITAMINS W/ FOLIC ACID TABLET (FP) PO SCH (10:10)
[2020-05-16 10:50] LABS: HEMATOCRIT 36.5 % (32.4-45.2); HEMOGLOBIN 12.2 GM/dL (10.7-15.3); MCH 30.5 pg (25.7-33.7); MCHC 33.5 g/dl (32.0-36.0); MEAN CELL VOLUME 91.2 fl (80-96); MEAN PLT VOLUME 7.7 fl (7.5-11.1); PLATELET COUNT 295 K/MM3 (134-434); RDW 15.6 % (11.6-15.6); WHITE BLOOD COUNT 5.2 K/mm3 (4.0-10.0)
--- NOTE | 2020-05-16 11:03 | PN ---
S CIWA - CIWA Score Nausea/Vomitin Muscle Tremors: 2 Anxiety: 3 Agitation: 3 Paroxysmal Sweats: 1-Minimal Palms Moist Orientation: 0-Oriented Tacttile Disturbances: 1-Very Mild Itch/Numbness Auditory Disturbances: 0-None Visual Disturbances: 0-None Headache: 2-Mild CIWA-Ar Total Score: 14 S Progress Note (SOAP) Subjective: alert,irritable,anxious,interrupted sleep,tremor,aching pain in the body and back Objective: 05/16/20 17:34 Vital Signs Temperature 97.1 F L 05/16/20 12:34 Pulse Rate 90 05/16/20 12:34 Respiratory Rate 18 05/16/20 12:34 Blood Pressure 125/87 05/16/20 12:34 O2 Sat by Pulse Oximetry (%) 98 05/16/20 12:34 05/16/20 17:35 Laboratory Last Values WBC 5.2 K/mm3 (4.0-10.0) 05/16/20 07:00 RBC 4.00 M/mm3 (3.60-5.2) 05/16/20 07:00 Hgb 12.2 GM/dL (10.7-15.3) 05/16/20 07:00 Hct 36.5 % (32.4-45.2) 05/16/20 07:00 MCV 91.2 fl (80-96) 05/16/20 07:00 MCH 30.5 pg (25.7-33.7) 05/16/20 07:00 MCHC 33.5 g/dl (32.0-36.0) 05/16/20 07:00 RDW 15.6 % (11.6-15.6) D 05/16/20 07:00 Plt Count 295 K/MM3 (134-434) D 05/16/20 07:00 MPV 7.7 fl (7.5-11.1) D 05/16/20 07:00 Sodium 139 mmol/L (136-145) 05/16/20 07:00 Potassium 3.1 mmol/L (3.5-5.1) L 05/16/20 07:00 Chloride 98 mmol/L (98-107) 05/16/20 07:00 Carbon Dioxide 33 mmol/L (21-32) H 05/16/20 07:00 Anion Gap 8 MMOL/L (8-16) 05/16/20 07:00 BUN 10.4 mg/dL (7-18) 05/16/20 07:00 Creatinine 0.7 mg/dL (0.55-1.3) 05/16/20 07:00 Est GFR (CKD-EPI)AfAm 112.26 05/16/20 07:00 Est GFR (CKD-EPI)NonAf 96.86 05/16/20 07:00 Random Glucose 98 mg/dL (74-106) 05/16/20 07:00 Calcium 8.8 mg/dL (8.5-10.1) 05/16/20 07:00 Total Bilirubin 1.2 mg/dL (0.2-1) H 05/16/20 07:00 AST 50 U/L (15-37) H 05/16/20 07:00 ALT 33 U/L (13-61) 05/16/20 07:00 Alkaline Phosphatase 87 U/L (45-117) 05/16/20 07:00 Total Protein 5.9 g/dl (6.4-8.2) L 05/16/20 07:00 Albumin 2.9 g/dl (3.4-5.0) L 05/16/20 07:00 POC Urine HCG, Qual Negative 05/15/20 20:37 Syphilis Serology Non-reactive (NONREACTIVE) 05/15/20 07:00 Assessment: 05/16/20 17:36 withdrawal symptom Plan: continue detox librium regimen,k is 3.1,to 20 meq now then bid for 3 days,give h dur ,repeat k in am,encourage fluid
[2020-05-16 11:38] LABS: ALBUMIN 2.9 g/dl (3.4-5.0); BILIRUBIN,TOTAL 1.2 mg/dL (0.2-1); BLOOD UREA NITROGEN 10.4 mg/dL (7-18); CALCIUM 8.8 mg/dL (8.5-10.1); CREATININE 0.7 mg/dL (0.55-1.3); POTASSIUM 3.1 mmol/L (3.5-5.1); TOT PROT 5.9 g/dl (6.4-8.2)
--- NOTE | 2020-05-16 12:18 | CONSULT ---
[facility] Psychiatric Consult - Data Date of interview: 05/16/20 Admission source: [facility] Identifying data: Readmission to [address] [place] [address] for this 54 y/o female, self- referred for detoxification treatment. LEIF issues : alcohol, nicotine, opiate. Patient is , no children, domiciled, unemployed and supported on [facility] benefits. Substance Abuse History: Discussed with the patient. LEIF profile as follows : patient consumes 1/2 quart of vodka daily. Came to [facility] in a state of intoxication. No history of MAT interventions. Smoking history: Current every day smoker. Have you smoked in the past 12 months: Yes. Approximately how many cigarettes per day: 10. Cigars Per Day: 0. Hx Chewing Tobacco Use: No. Initiated information on smoking cessation: Yes. 'Breaking Loose' booklet given: 05/15/20. History of multiple LEIF treatment failures. Medical History: Remarkable for left hip replacement, chronic lumbar pain, fibromyalgia, psoriatic arthritis and a history of surgeries (bilateral breast augmentation, fusion of lumbar spine). Patient uses a cane for ambulation. Psychiatric History: Patient endorses a history of one psychiatric hospitalization, in the , at [facility] in [facility]. She was initially diagnosed with MDD and OCD (age 16). Diagnosis was later revised to Bipolar Disorder. Ms Barnett sees Dr De La O (last name not recalled) at [facility] clinic for medication management. She reports maintenance treatment with a combination of latuda 60 mg/day + prozac 80 mg/day + trazodone 100 mg/hs (confirmed by pharmacy claims of 08/20/18 at [facility] Patient endorses adherence to medications. No history of suicide attempts. Physical/Sexual Abuse/Trauma History: No reported history of abuse. Trauma : divorce (finalized 10 years ago). Additional Comment: Urine drug screen results: BZO-Benzodiazepines. Noted. Mental Status Exam - Mental Status Exam Alert and Oriented to: Time, Place, Person Cognitive Function: Good Patient Appearance: Well Groomed Mood: Nervous, Withdrawn Affect: Mood Congruent, Constricted Patient Behavior: Fatigued, Appropriate, Cooperative Speech Pattern: Clear, Appropriate Voice Loudness: Normal Thought Process: Intact, Goal Oriented Thought Disorder: Not Present Hallucinations: Denies Suicidal Ideation: Denies Homicidal Ideation: Denies Insight/Judgement: Poor Sleep: Poorly, Difficulty falling asleep Appetite: Good Gait/Station: Other (walks with cane) Psychiatric Findings - Problem List ([place] 1, 2,3) (1) Alcohol dependence with uncomplicated withdrawal Current Visit: Yes Status: Acute (2) Nicotine dependence Current Visit: Yes Status: Chronic Qualifiers: Nicotine product type: cigarettes Substance use status: uncomplicated Qualified Code(s): F17.210 - Nicotine dependence, cigarettes, uncomplicated (3) Substance induced mood disorder Current Visit: Yes Status: Chronic (4) Bipolar disorder Current Visit: Yes Status: Chronic Comment: On medications. (5) Insomnia Current Visit: Yes Status: Chronic - Initial Treatment Plan Initial Treatment Plan: Records ([facility]) revisited. Attempt made to contact pharmacist ([phone]) at [facility] # [id number] : placed on indefinite hold. Psychoeducation. Sleep hygiene. Detoxification. Medications resumed at patient's request : prozac 60 mg po daily + latuda 40 mg po daily (reduced in view of risk of oversedation) + trazodone 100 mg po hs. Side effects/benefits of these medications are discussed with the patient. She agrees with plan of care. Observation.
[2020-05-16] MEDS: ACETAMINOPHEN 325 MG TABLET (FP) PO PRN (16:05)
[2020-05-16] MEDS: IBUPROFEN 400 MG TABLET (FP) PO PRN (17:37)
[2020-05-16] MEDS ORDERED: POTASSIUM CHLORIDE TABS 20 MEQ TABLET.ER (FP) PO ONE (17:38)
[2020-05-16] MEDS: THIAMINE HCL 100 MG TABLET (FP) PO SCH (22:13)
[2020-05-16] MEDS: POTASSIUM CHLORIDE TABS 20 MEQ TABLET.ER (FP) PO SCH (22:14)
[2020-05-16] MEDS: traZODone HCL 100 MG TABLET (FP) PO SCH (22:14)
[2020-05-16] MEDS: MELATONIN 5 MG TABLETS PO PRN (22:14)
[2020-05-17] MEDS: chlordiazePOXIDE HCL 25 MG CAPSULE PO SCH ×4 (05:31→22:12)
[2020-05-17] MEDS: FLUoxetine HCL 20 MG CAPSULE PO SCH (10:06)
[2020-05-17] MEDS: LURASIDONE HCL 40 MG TABLET PO SCH (10:06)
[2020-05-17] MEDS: PRENATAL VITAMINS W/ FOLIC ACID TABLET (FP) PO SCH (10:07)
[2020-05-17] MEDS: NICOTINE 7 MG/24 HOURS TOPICAL PATCH TD SCH (10:07)
[2020-05-17] MEDS: POTASSIUM CHLORIDE TABS 20 MEQ TABLET.ER (FP) PO SCH ×2 (10:07→22:12)
[2020-05-17] MEDS: BISMUTH SUBSALICYLATE 524 MG/30 ML UD PO PRN ×2 (10:14→18:10)
[2020-05-17] MEDS: ACETAMINOPHEN 325 MG TABLET (FP) PO PRN ×2 (11:42→18:09)
[2020-05-17] MEDS: IBUPROFEN 400 MG TABLET (FP) PO PRN (14:01)
[2020-05-17] MEDS: chlordiazePOXIDE HCL 25 MG CAPSULE PO PRN (14:02)
[2020-05-17] MEDS: METHOCARBAMOL 500 MG TABLET PO PRN (14:02)
--- NOTE | 2020-05-17 14:03 | PN ---
S CIWA - CIWA Score Nausea/Vomitin-Mild Nausea/No Vomiting Muscle Tremors: 2 Anxiety: 2 Agitation: 2 Paroxysmal Sweats: No Perspiration Orientation: 0-Oriented Tacttile Disturbances: 1-Very Mild Itch/Numbness Auditory Disturbances: 0-None Visual Disturbances: 0-None Headache: 2-Mild CIWA-Ar Total Score: 10 S Progress Note (SOAP) Subjective: alert,irritable,anxious,interrupted sleep,tremor,aching pain Objective: 05/17/20 18:10 Vital Signs Temperature 97.5 F L 05/17/20 17:47 Pulse Rate 88 05/17/20 17:47 Respiratory Rate 16 05/17/20 17:47 Blood Pressure 90/64 05/17/20 17:47 O2 Sat by Pulse Oximetry (%) 97 05/17/20 12:35 05/17/20 18:11 k is 3.4 Assessment: 05/17/20 18:11 withdrawal symptom Plan: continue detox librium regimen,k dur 20 meq po bid,repeat k in am
[2020-05-17] MEDS: traZODone HCL 100 MG TABLET (FP) PO SCH (22:12)
[2020-05-17] MEDS: THIAMINE HCL 100 MG TABLET (FP) PO SCH (22:12)
[2020-05-17] MEDS: MELATONIN 5 MG TABLETS PO PRN (22:13)
[2020-05-18] MEDS ORDERED: chlordiazePOXIDE HCL 10 MG CAPSULE PO PRN
[2020-05-18] MEDS: chlordiazePOXIDE HCL 10 MG CAPSULE PO SCH ×4 (05:47→22:04)
[2020-05-18] MEDS: ACETAMINOPHEN 325 MG TABLET (FP) PO PRN (09:24)
[2020-05-18] MEDS: POTASSIUM CHLORIDE TABS 20 MEQ TABLET.ER (FP) PO SCH ×2 (10:04→22:04)
[2020-05-18] MEDS: PRENATAL VITAMINS W/ FOLIC ACID TABLET (FP) PO SCH (10:05)
[2020-05-18] MEDS: FLUoxetine HCL 20 MG CAPSULE PO SCH (10:05)
[2020-05-18] MEDS: LURASIDONE HCL 40 MG TABLET PO SCH (10:05)
[2020-05-18] MEDS: NICOTINE 7 MG/24 HOURS TOPICAL PATCH TD SCH (10:05)
--- NOTE | 2020-05-18 11:46 | PN ---
S CIWA - CIWA Score Nausea/Vomitin-Mild Nausea/No Vomiting Muscle Tremors: 1-None Visible, but [place] Anxiety: 2 Agitation: 2 Paroxysmal Sweats: No Perspiration Orientation: 0-Oriented Tacttile Disturbances: 0-None Auditory Disturbances: 0-None Visual Disturbances: 0-None Headache: 1-Very Mild CIWA-Ar Total Score: 7 S Progress Note (SOAP) Subjective: Pt seen at bedside this morning. Pt report improving withdrawal symptoms; although still anxious and restless. Pt also reports generalized weakness and fatigue. Reports uninterrupted sleep. Objective: Last Vital Signs Temp Pulse Resp BP Pulse Ox 97.8 F 106 H 18 94/65 97 05/18/20 09:19 05/18/20 09:19 05/18/20 09:19 05/18/20 09:19 05/18/20 06:54 Gen - NAD, well dev/well nourished, AOx3 CV - RRR, normal s1, s2 Pulm - CTAB, good air entry Mental Status - anxious MSK/ext - gait steady, normal inspection, tremor felt, not seen; 5/5 strength throughout Skin - dry, normal color CBC,CMP WBC 5.2 K/mm3 (4.0-10.0) 05/16/20 07:00 RBC 4.00 M/mm3 (3.60-5.2) 05/16/20 07:00 Hgb 12.2 GM/dL (10.7-15.3) 05/16/20 07:00 Hct 36.5 % (32.4-45.2) 05/16/20 07:00 MCV 91.2 fl (80-96) 05/16/20 07:00 MCH 30.5 pg (25.7-33.7) 05/16/20 07:00 MCHC 33.5 g/dl (32.0-36.0) 05/16/20 07:00 RDW 15.6 % (11.6-15.6) D 05/16/20 07:00 Plt Count 295 K/MM3 (134-434) D 05/16/20 07:00 MPV 7.7 fl (7.5-11.1) D 05/16/20 07:00 Sodium 139 mmol/L (136-145) 05/16/20 07:00 Potassium 3.5 mmol/L (3.5-5.1) 05/18/20 06:50 Chloride 98 mmol/L (98-107) 05/16/20 07:00 Carbon Dioxide 33 mmol/L (21-32) H 05/16/20 07:00 Anion Gap 8 MMOL/L (8-16) 05/16/20 07:00 BUN 10.4 mg/dL (7-18) 05/16/20 07:00 Creatinine 0.7 mg/dL (0.55-1.3) 05/16/20 07:00 Est GFR (CKD-EPI)AfAm 112.26 05/16/20 07:00 Est GFR (CKD-EPI)NonAf 96.86 05/16/20 07:00 Random Glucose 98 mg/dL (74-106) 05/16/20 07:00 Calcium 8.8 mg/dL (8.5-10.1) 05/16/20 07:00 Total Bilirubin 1.2 mg/dL (0.2-1) H 05/16/20 07:00 AST 50 U/L (15-37) H 05/16/20 07:00 ALT 33 U/L (13-61) 05/16/20 07:00 Alkaline Phosphatase 87 U/L (45-117) 05/16/20 07:00 Total Protein 5.9 g/dl (6.4-8.2) L 05/16/20 07:00 Albumin 2.9 g/dl (3.4-5.0) L 05/16/20 07:00 05/18/20 11:46 05/18/20 11:50 Assessment: Improving alcohol withdrawal symptoms. Reports fatigue and generalized weakness. K level normalized. 05/18/20 11:50 05/18/20 11:52 Plan: - Continue librium detox regimen - Prozac 60 mg po daily + latuda 40 mg po daily (reduced in view of risk of oversedation) + trazodone 100 mg po hs, as per Psychiatry
[2020-05-18] MEDS: THIAMINE HCL 100 MG TABLET (FP) PO SCH (22:04)
[2020-05-18] MEDS: traZODone HCL 100 MG TABLET (FP) PO SCH (22:04)
[2020-05-19] MEDS: chlordiazePOXIDE HCL 10 MG CAPSULE PO SCH ×2 (06:10→17:28)
[2020-05-19] MEDS: IBUPROFEN 400 MG TABLET (FP) PO PRN ×2 (09:04→17:29)
[2020-05-19] MEDS: LURASIDONE HCL 40 MG TABLET PO SCH (09:04)
[2020-05-19] MEDS: FLUoxetine HCL 20 MG CAPSULE PO SCH (09:04)
[2020-05-19] MEDS: NICOTINE 7 MG/24 HOURS TOPICAL PATCH TD SCH (09:05)
[2020-05-19] MEDS: PRENATAL VITAMINS W/ FOLIC ACID TABLET (FP) PO SCH (09:05)
[2020-05-19] MEDS: BISMUTH SUBSALICYLATE 524 MG/30 ML UD PO PRN (09:08)
--- NOTE | 2020-05-19 15:38 | PN ---
[facility] CIWA - CIWA Score Nausea/Vomitin-No Nausea/No Vomiting Muscle Tremors: None Anxiety: 2 Agitation: 0-Normal Activity Paroxysmal Sweats: 2 Orientation: 0-Oriented Tacttile Disturbances: 0-None Auditory Disturbances: 0-None Visual Disturbances: 0-None Headache: 0-None Present CIWA-Ar Total Score: 4 BHS Progress Note (SOAP) Subjective: c/o mild withdrawal symptoms. Objective: 05/19/20 15:36 Vital Signs 05/19/20 05/19/20 08:37 12:41 Temperature 96.8 F L 97.8 F Pulse Rate 97 H 97 H Respiratory 18 18 Rate Blood Pressure 95/75 106/76 O2 Sat by Pulse 96 Oximetry (%) Laboratory Last Values WBC 5.2 K/mm3 (4.0-10.0) 05/16/20 07:00 RBC 4.00 M/mm3 (3.60-5.2) 05/16/20 07:00 Hgb 12.2 GM/dL (10.7-15.3) 05/16/20 07:00 Hct 36.5 % (32.4-45.2) 05/16/20 07:00 MCV 91.2 fl (80-96) 05/16/20 07:00 MCH 30.5 pg (25.7-33.7) 05/16/20 07:00 MCHC 33.5 g/dl (32.0-36.0) 05/16/20 07:00 RDW 15.6 % (11.6-15.6) D 05/16/20 07:00 Plt Count 295 K/MM3 (134-434) D 05/16/20 07:00 MPV 7.7 fl (7.5-11.1) D 05/16/20 07:00 Sodium 139 mmol/L (136-145) 05/16/20 07:00 Potassium 3.5 mmol/L (3.5-5.1) 05/18/20 06:50 Chloride 98 mmol/L (98-107) 05/16/20 07:00 Carbon Dioxide 33 mmol/L (21-32) H 05/16/20 07:00 Anion Gap 8 MMOL/L (8-16) 05/16/20 07:00 BUN 10.4 mg/dL (7-18) 05/16/20 07:00 Creatinine 0.7 mg/dL (0.55-1.3) 05/16/20 07:00 Est GFR (CKD-EPI)AfAm 112.26 05/16/20 07:00 Est GFR (CKD-EPI)NonAf 96.86 05/16/20 07:00 Random Glucose 98 mg/dL (74-106) 05/16/20 07:00 Calcium 8.8 mg/dL (8.5-10.1) 05/16/20 07:00 Total Bilirubin 1.2 mg/dL (0.2-1) H 05/16/20 07:00 AST 50 U/L (15-37) H 05/16/20 07:00 ALT 33 U/L (13-61) 05/16/20 07:00 Alkaline Phosphatase 87 U/L (45-117) 05/16/20 07:00 Total Protein 5.9 g/dl (6.4-8.2) L 05/16/20 07:00 Albumin 2.9 g/dl (3.4-5.0) L 05/16/20 07:00 POC Urine HCG, Qual Negative 05/15/20 20:37 Syphilis Serology Non-reactive (NONREACTIVE) 05/15/20 07:00 COVID-19 ([facility]AD) Not detected (Not Detected) 05/15/20 20:20 Labs noted. Assessment: 05/19/20 15:37AOX3, in no acute respiratory distress. Full ROM, ambulating in the unit. Withdrawal symptoms. For d/c tomorrow. Plan: continue detox. D/C in AM.
[2020-05-19] MEDS: METHOCARBAMOL 500 MG TABLET PO PRN (22:19)
[2020-05-19] MEDS: THIAMINE HCL 100 MG TABLET (FP) PO SCH (22:20)
[2020-05-19] MEDS: MELATONIN 5 MG TABLETS PO PRN (22:20)
[2020-05-19] MEDS: traZODone HCL 100 MG TABLET (FP) PO SCH (22:20)
[2020-05-20] MEDS ORDERED: chlordiazePOXIDE HCL 10 MG CAPSULE PO ONE (05:00)
[2020-05-20 07:23] VITALS: BP 115/80; PULSE 84; TEMP 97.9
--- NOTE | 2020-05-20 09:05 | DS ---
[facility] Detox Discharge Summary Admission Date: 05/15/20 Discharge Date: 05/20/20 - History Present History: Alcohol Dependence Additional Comments: 54 years old female was admitted on 05/15/20 for alcohol withdrawal sx management treated with librium detox regiment seen by psychiatrist ezra oneill ms colmenares has completed the librium regiment and is tolerated well General Appearance: Yes: good hygiene, no Distress, mild Tremorous, no Sweating, mild Anxious HEENTM: Yes: EOMI, Hearing grossly Normal, Normocephalic, Normal Voice Respiratory: Yes: Chest Non-Tender, Lungs Clear, Normal Breath Sounds, No Respiratory Distress, No Accessory Muscle Use Neck: Yes: No masses,lesions,Nodules, Trachea in good position Cardiology: Yes: Regular Rhythm, Regular Rate, S1, S2, Tachycardia Abdominal: Yes: Non Tender, Soft Musculoskeletal: Yes: Joint Stiffness (left hip), Other (unsteady gait - ambulating using cane) Extremities: Yes: Other (flexion left hip surgical scar , decreased) Neurological: Yes: Alert, Motor Strength 5/5, Disoriented Integumentary: Yes: Warm, Other ( superficial excoriation bilateral knees, admits to fall while intoxicated) - Pertinent Past History: time for discharge 35 minutes - Physical Exam Results Vital Signs: Vital Signs Temperature 97.9 F 05/20/20 07:22 Pulse Rate 84 05/20/20 07:22 Respiratory Rate 18 05/20/20 07:22 Blood Pressure 115/80 05/20/20 07:22 O2 Sat by Pulse Oximetry (%) 98 05/20/20 07:22 Pertinent Admission Physical Exam Findings: alcohol withdrawal Vital Signs - 24 hr 05/19/20 05/19/20 05/20/20 16:47 21:08 07:22 Temperature 97.4 F L 97.5 F L 97.9 F Pulse Rate 89 85 84 Respiratory 18 17 18 Rate Blood Pressure 113/77 111/87 115/80 O2 Sat by Pulse 98 Oximetry (%) Laboratory Tests 05/15/20 05/15/20 05/15/20 07:00 20:20 20:37 WBC RBC Hgb Hct MCV MCH MCHC RDW Plt Count MPV Sodium Potassium Chloride Carbon Dioxide Anion Gap BUN Creatinine Est GFR (CKD-EPI)AfAm Est GFR (CKD-EPI)NonAf Random Glucose Calcium Total Bilirubin AST ALT Alkaline Phosphatase Total Protein Albumin POC Urine HCG, Qual Negative Syphilis Serology Non-reactive COVID-19 (CARIDAD) Not detected 05/16/20 05/16/20 05/17/20 07:00 07:00 07:00 WBC 5.2 RBC 4.00 Hgb 12.2 Hct 36.5 MCV 91.2 MCH 30.5 MCHC 33.5 RDW 15.6 D Plt Count 295 D MPV 7.7 D Sodium 139 Potassium 3.1 L 3.4 L Chloride 98 Carbon Dioxide 33 H Anion Gap 8 BUN 10.4 Creatinine 0.7 Est GFR (CKD-EPI)AfAm 112.26 Est GFR (CKD-EPI)NonAf 96.86 Random Glucose 98 Calcium 8.8 Total Bilirubin 1.2 H AST 50 H ALT 33 Alkaline Phosphatase 87 Total Protein 5.9 L Albumin 2.9 L POC Urine HCG, Qual Syphilis Serology COVID-19 (CARIDAD) 05/18/20 06:50 WBC RBC Hgb Hct MCV MCH MCHC RDW Plt Count MPV Sodium Potassium 3.5 Chloride Carbon Dioxide Anion Gap BUN Creatinine Est GFR (CKD-EPI)AfAm Est GFR (CKD-EPI)NonAf Random Glucose Calcium Total Bilirubin AST ALT Alkaline Phosphatase Total Protein Albumin POC Urine HCG, Qual Syphilis Serology COVID-19 ([facility]AD) low K+ corrected by K+ supplement - Treatment Hospital Course: Detox Protocol Followed, Detoxed Safely, Responded well, Discharged Condition Good, Rehab Referral Accepted Patient has Accepted a Rehab Referral to: [facility] - Medication Discharge Medications: Ambulatory Orders traZODone HCL [Desyrel -] 100 mg PO HS #30 tablet 03/07/18 Lurasidone HCl [Latuda -] 60 mg PO DAILY 09/12/18 Fluoxetine HCl [Prozac -] 80 mg PO DAILY 02/18/19 LORazepam [Lorazepam] 0.5 mg PO TID 05/15/20 - Diagnosis (1) Alcohol dependence with uncomplicated withdrawal Status: Acute (2) Bipolar II disorder Status: Suspected (3) Nicotine dependence Status: Acute Qualifiers: Nicotine product type: cigarettes Substance use status: in withdrawal Qualified Code(s): F17.213 - Nicotine dependence, cigarettes, with withdrawal (4) Overweight (BMI 25.0-29.9) Status: Chronic - AMA Did Patient Leave Against Medical Advice: No CIWA Score - CIWA Score Nausea/Vomitin-No Nausea/No Vomiting Muscle Tremors: None Anxiety: 1-Mildly Anxious Agitation: 0-Normal Activity Paroxysmal Sweats: 1-Minimal Palms Moist Orientation: 0-Oriented Tacttile Disturbances: 0-None Auditory Disturbances: 0-None Visual Disturbances: 0-None Headache: 0-None Present CIWA-Ar Total Score: 2
== END 2020-05-20 09:02 | disposition home or self-care (01) | DRG 773 ==
LOC: YASAS 18:09 → Y3N 19:26
PROVIDERS: ADMIT Allergy & Immunology; ATTEND Allergy & Immunology
PROC: HZ2ZZZZ Detoxification Services for Substance Abuse Treatment (ICD-10-PCS; principal; 2020-05-17)
DX: F10.230 Alcohol dependence with withdrawal, uncomplicated (principal); F10.220 Alcohol dependence with intoxication, uncomplicated; F11.20 Opioid dependence, uncomplicated; F17.210 Nicotine dependence, cigarettes, uncomplicated; F31.81 Bipolar II disorder; F19.24 Other psychoactive substance dependence with psychoactive substance-induced mood disorder; L40.50 Arthropathic psoriasis, unspecified; M79.7 Fibromyalgia; M54.5 Low back pain; G89.29 Other chronic pain; E66.3 Overweight; Z68.26 Body mass index [BMI] 26.0-26.9, adult; Z98.1 Arthrodesis status; Z96.642 Presence of left artificial hip joint; R26.89 Other abnormalities of gait and mobility; Z99.89 Dependence on other enabling machines and devices; Z88.5 Allergy status to narcotic agent; Z56.0 Unemployment, unspecified
CPT/HCPCS: 36415; 80053; 81025; 84132; 85027; 86780; C9803; Q0162; U0003

== ENCOUNTER 2021-12-20 10:25 | Inpatient (IN) | payer OTHER ==
[2021-12-20 11:11] VITALS: BMI 26.5
[2021-12-20] MEDS ORDERED: MAG HYDROX/AL HYDROX/SIMETH 30 ML UNIT-DOSE CUP PO PRN (11:33)
[2021-12-20] MEDS ORDERED: BISMUTH SUBSALICYLATE 262 MG/15 ML BTL PO PRN (11:33)
[2021-12-20] MEDS ORDERED: chlordiazePOXIDE HCL 25 MG CAPSULE PO PRN (11:33)
[2021-12-20] MEDS ORDERED: NICOTINE 10 MG CARTRIDGE (INHALER) IH PRN (11:33)
[2021-12-20] MEDS ORDERED: ACETAMINOPHEN 325 MG TABLET (FP) PO PRN ×2 (11:33)
[2021-12-20] MEDS ORDERED: MAGNESIUM HYDROX 2400MG/30ML ORAL SUSPENSION 30 ML CUP PO PRN (11:33)
[2021-12-20] MEDS ORDERED: DICYCLOMINE HCL 10 MG CAPSULE PO PRN (11:33)
[2021-12-20] MEDS ORDERED: MAGNESIUM CITRATE 300 ML BOTTLE PO PRN (11:33)
[2021-12-20] MEDS ORDERED: LOPERAMIDE HCL 2 MG CAPSULE PO PRN (11:33)
[2021-12-20] MEDS ORDERED: ONDANSETRON *ODT* 4 MG TABLET SL PRN (11:33)
[2021-12-20] MEDS ORDERED: BENZOCAINE/MENTHOL (CHLORASEPTIC ) LOZENGE MM PRN (11:33)
[2021-12-20 14:09] LABS: HEMATOCRIT 41.1 % (32.4-45.2); HEMOGLOBIN 13.5 GM/dL (10.7-15.3); MCH 29.4 pg (25.7-33.7); MCHC 32.8 g/dl (32.0-36.0); MEAN CELL VOLUME 89.9 fl (80-96); MEAN PLT VOLUME 8.1 fl (7.5-11.1); PLATELET COUNT 327 10^3/uL (134-434); RBC 4.58 M/mm3 (3.60-5.2); RDW 13.6 % (11.6-15.6); WHITE BLOOD COUNT 6.9 K/mm3 (4.0-10.0)
[2021-12-20 14:27] LABS: ALBUMIN 3.3 g/dl (3.4-5.0); CALCIUM 9.1 mg/dL (8.5-10.1)
[2021-12-20 14:30] LABS: CREATININE 0.7 mg/dL (0.55-1.3)
[2021-12-20 14:32] LABS: BILIRUBIN,TOTAL 0.5 mg/dL (0.2-1); TOT PROT 6.4 g/dl (6.4-8.2)
[2021-12-20] MEDS: hydrOXYzine PAMOATE 25 MG CAPSULE (FP) PO SCH ×3 (17:41→22:00)
[2021-12-20] MEDS: chlordiazePOXIDE HCL 25 MG CAPSULE PO SCH ×3 (17:41→22:01)
[2021-12-20] MEDS: PRENATAL VITAMINS W/ FOLIC ACID TABLET (FP) PO SCH (17:45)
[2021-12-20] MEDS: NICOTINE 14 MG/24 HOURS TOPICAL PATCH TD SCH (17:45)
[2021-12-20] MEDS: traZODone HCL 100 MG TABLET (FP) PO SCH (22:00)
[2021-12-20] MEDS: MELATONIN 5 MG TABLETS PO SCH (22:01)
[2021-12-20] MEDS: THIAMINE HCL 100 MG TABLET (FP) PO SCH (22:01)
[2021-12-21] MEDS: chlordiazePOXIDE HCL 25 MG CAPSULE PO SCH ×4 (05:56→22:01)
[2021-12-21] MEDS: hydrOXYzine PAMOATE 25 MG CAPSULE (FP) PO SCH ×5 (05:56→22:01)
[2021-12-21] MEDS: LURASIDONE HCL 20 MG, LURASIDONE HCL 40 MG PO SCH (07:14)
[2021-12-21] MEDS ORDERED: LURASIDONE HCL 20 MG TABLET PO SCH (10:00)
[2021-12-21] MEDS: FLUoxetine HCL 20 MG CAPSULE PO SCH (10:22)
[2021-12-21] MEDS: PRENATAL VITAMINS W/ FOLIC ACID TABLET (FP) PO SCH (10:22)
[2021-12-21] MEDS: IBUPROFEN 400 MG TABLET (FP) PO PRN (10:23)
[2021-12-21] MEDS: NICOTINE 14 MG/24 HOURS TOPICAL PATCH TD SCH (10:26)
[2021-12-21] MEDS: MELATONIN 5 MG TABLETS PO SCH (22:00)
[2021-12-21] MEDS: traZODone HCL 100 MG TABLET (FP) PO SCH (22:01)
[2021-12-21] MEDS: THIAMINE HCL 100 MG TABLET (FP) PO SCH (22:01)
[2021-12-21] MEDS: METHOCARBAMOL 500 MG TABLET PO PRN (22:01)
[2021-12-22] MEDS: hydrOXYzine PAMOATE 25 MG CAPSULE (FP) PO SCH ×5 (05:58→22:00)
[2021-12-22] MEDS: chlordiazePOXIDE HCL 25 MG CAPSULE PO SCH ×4 (05:58→22:00)
[2021-12-22] MEDS: METHOCARBAMOL 500 MG TABLET PO PRN ×2 (08:44→17:17)
[2021-12-22] MEDS: LURASIDONE HCL 20 MG, LURASIDONE HCL 40 MG PO SCH (08:45)
[2021-12-22] MEDS: NICOTINE 14 MG/24 HOURS TOPICAL PATCH TD SCH (10:03)
[2021-12-22] MEDS: FLUoxetine HCL 20 MG CAPSULE PO SCH (10:04)
[2021-12-22] MEDS: PRENATAL VITAMINS W/ FOLIC ACID TABLET (FP) PO SCH (10:05)
[2021-12-22] MEDS: IBUPROFEN 400 MG TABLET (FP) PO PRN ×2 (11:30→17:16)
[2021-12-22] MEDS: traZODone HCL 100 MG TABLET (FP) PO SCH (22:00)
[2021-12-22] MEDS: MELATONIN 5 MG TABLETS PO SCH (22:00)
[2021-12-22] MEDS: THIAMINE HCL 100 MG TABLET (FP) PO SCH (22:01)
[2021-12-23] MEDS ORDERED: chlordiazePOXIDE HCL 10 MG CAPSULE PO PRN
[2021-12-23] MEDS: chlordiazePOXIDE HCL 10 MG CAPSULE PO SCH ×4 (05:45→22:02)
[2021-12-23] MEDS: hydrOXYzine PAMOATE 25 MG CAPSULE (FP) PO SCH ×5 (05:45→22:02)
[2021-12-23] MEDS: METHOCARBAMOL 500 MG TABLET PO PRN ×2 (08:33→16:17)
[2021-12-23] MEDS: IBUPROFEN 400 MG TABLET (FP) PO PRN ×2 (08:33→16:17)
[2021-12-23] MEDS: LURASIDONE HCL 20 MG, LURASIDONE HCL 40 MG PO SCH (08:34)
[2021-12-23] MEDS: PRENATAL VITAMINS W/ FOLIC ACID TABLET (FP) PO SCH (10:10)
[2021-12-23] MEDS: FLUoxetine HCL 20 MG CAPSULE PO SCH (10:10)
[2021-12-23] MEDS: NICOTINE 14 MG/24 HOURS TOPICAL PATCH TD SCH (10:12)
[2021-12-23 16:08] LABS: SARS-CoV-2 NAA Not Detected (Not Detected)
[2021-12-23] MEDS: MELATONIN 5 MG TABLETS PO SCH (22:02)
[2021-12-23] MEDS: THIAMINE HCL 100 MG TABLET (FP) PO SCH (22:02)
[2021-12-23] MEDS: traZODone HCL 100 MG TABLET (FP) PO SCH (22:02)
[2021-12-24] MEDS ORDERED: chlordiazePOXIDE HCL 10 MG CAPSULE PO SCH (05:00)
[2021-12-24] MEDS: hydrOXYzine PAMOATE 25 MG CAPSULE (FP) PO SCH (05:58)
[2021-12-24] MEDS: LURASIDONE HCL 20 MG, LURASIDONE HCL 40 MG PO SCH (07:06)
[2021-12-24 09:34] VITALS: BP 119/74; PULSE 84; TEMP 97.4
[2021-12-25] MEDS ORDERED: chlordiazePOXIDE HCL 10 MG CAPSULE PO ONE (05:00)
== END 2021-12-24 09:44 | disposition home or self-care (01) | DRG 897 ==
LOC: YASAS 10:25 → Y6N 16:46
PROVIDERS: ADMIT Allergy & Immunology; ATTEND Surgery
PROC: HZ2ZZZZ Detoxification Services for Substance Abuse Treatment (ICD-10-PCS; principal; 2021-12-20)
DX: F10.230 Alcohol dependence with withdrawal, uncomplicated (principal); F14.20 Cocaine dependence, uncomplicated; F31.81 Bipolar II disorder; F17.210 Nicotine dependence, cigarettes, uncomplicated; L40.50 Arthropathic psoriasis, unspecified; E66.3 Overweight; Z68.26 Body mass index [BMI] 26.0-26.9, adult
CPT/HCPCS: 36415; 80053; 82962; 85027; 86780; C9803-CS; U0003; U0005